=== PATIENT | male | born 1945 ===

== ENCOUNTER 2022-08-11 12:21 | Outpatient (REF) | payer MEDICARE, SELFPAY ==
--- NOTE | ~2022-08-11 | XR_ITS ---
EXAMINATION: XR CHEST CLINICAL INFORMATION: Acute bronchitis COMPARISON: None TECHNIQUE: 2 views of the chest were obtained. FINDINGS: Hyperexpanded lungs. Oligemia of the upper lungs suggestive of emphysema. No consolidation. No pleural effusion or pneumothorax. The cardiomediastinal silhouette is within normal limits. XR/XR chest 2V IMPRESSION: No consolidation. Findings suggestive of emphysema.
== END 2022-08-11 12:22 | disposition home or self-care (01) ==
LOC: HO.HMGCX 12:21
PROVIDERS: Visit Provider Internal Medicine
DX: J20.9 Acute bronchitis, unspecified (principal)
CPT/HCPCS: 71046

== ENCOUNTER 2022-12-24 08:45 | Outpatient (REF) | payer MEDICARE, SELFPAY ==
[2022-12-24 11:28] LABS: MANUAL DIFF FLAG NO
[2022-12-24 11:31] LABS: Basophils Percent Auto 0.7 % (0-2); Eosinophils Absolute Auto 0.1 X10*3/uL (0.0-0.4); Eosinophils Percent Auto 1.2 % (0-4); Hematocrit 44.5 % (42.0-52.0); Hemoglobin 14.7 g/dl (14.0-18.0); Lymphocytes Absolute Auto 1.5 X10*3/uL (1.2-4.9); Lymphocytes Percent Auto 35.6 % (20-40); Mean Corpuscular Hemoglobin 30.3 pg (27.0-33.0); Mean Corpuscular Volume 91.8 fL (80.0-98.0); Mean Platelet Volume 9.7 fL (9.4-12.4); Monocytes Absolute Auto 0.5 X10*3/uL (0.1-1.2); Monocytes Percent Auto 11.9 % (2-11); Neutrophils Absolute Auto 2.1 x10*3/uL (2.0-8.3); Neutrophils Percent Auto 50.6 % (45-73); Platelet Count 223 X10*3/uL (160-400); Red Blood Count 4.85 X10*6/uL (4.60-5.80); Red Cell Distribution Width 12.5 % (11.0-16.0); White Blood Count 4.1 X10*3/uL (4.8-10.8)
[2022-12-24 12:19] LABS: Alanine Aminotransferase 22 U/L (0-40); Albumin Level 3.9 g/dL (3.5-5.0); Alkaline Phosphatase 104 U/L (39-117); Anion Gap 12 (12-20); Aspartate Amino Transferase 23 U/L (5-37); Bilirubin Total 1.1 mg/dL (0.0-1.0); Blood Urea Nitrogen 13 mg/dL (9-16); Calcium 8.9 mg/dL (8.4-10.2); Carbon Dioxide 30 mmol/L (22-29); Chloride 107 mmol/L (96-108); Cholesterol 183 mg/dL; Estimated Glomerular Filt Rate > 60; Glucose Fasting 100 mg/dL (60-99); HDL Cholesterol 54 mg/dL; LDL Cholesterol Calculated 105 mg/dl; Sodium 144 mmol/L (135-145); Total Protein 6.5 g/dL (6.5-8.0); Triglycerides 124 mg/dL
[2022-12-24 12:37] LABS: PSA,Total (Free>4and<10) 1.22 ng/mL (0.00-4.00)
[2022-12-28 10:48] LABS: Theophylline 2.5
== END 2022-12-24 08:46 | disposition home or self-care (01) ==
LOC: HO.HMGCLDS 08:45
PROVIDERS: PCP Internal Medicine; Visit Provider Internal Medicine
DX: J44.9 Chronic obstructive pulmonary disease, unspecified (principal); Z87.891 Personal history of nicotine dependence; Z12.5 Encounter for screening for malignant neoplasm of prostate
CPT/HCPCS: 36415; 80053; 80061; 80198; 84153; 85025

== ENCOUNTER 2023-01-21 10:46 | Outpatient (REF) | payer MEDICARE, SELFPAY ==
--- NOTE | ~2023-01-21 | CT_ITS ---
EXAMINATION: CT ANGIOGRAM OF THE CHEST WITH AND WITHOUT CONTRAST (CT PULMONARY ANGIOGRAM FOR PE) CLINICAL INFORMATION: Reason for Exam R06.02 - Shortness of breath COMPARISON: December 2021. TECHNIQUE: Prior to contrast administration, noncontrast localization images were obtained. Subsequently, multidetector volumetric imaging was performed from the thoracic inlet to below the diaphragms following the administration of 65 mL Omnipaque 350 intravenous contrast. No contrast reaction reported Sagittal, coronal, and MIP oblique sagittal reformatted images were obtained on the CT workstation, uploaded to PACS, and reviewed. This CT examination was performed using dose optimization techniques as appropriate, variously including the following: *Automated exposure control *Adjustment of mA and/or kV according to patient size (this includes techniques or standardized protocols for targeted exams where dose is matched to indication/reason for exam; i.e. extremities or head) *Use of iterative reconstruction technique Total exam dose-length product 123 mGy-cm FINDINGS: QUALITY OF STUDY/CONTRAST BOLUS: Satisfactory. PULMONARY ARTERIES: No pulmonary emboli. THORACIC AORTA: No aneurysm. LUNG: Main airways unremarkable. Extensive emphysematous changes with bullous disease at the apices again observed. A perifissural nodule/granuloma previously seen on the right series 7 image 320 does not appear to be significantly changed. Left perifissural nodule image 374 also does not appear to be significantly changed. Peribronchial thickening appears increased at the lower lobe level. Mild increased atelectasis observed in the posterior lower lobes. Pleural plaque lateral right middle lobe series 7 image 499 at 6 to 6.5 mm appears stable. PLEURA: No pleural effusion or pneumothorax. MEDIASTINUM: Small mediastinal nodes again observed. Right hilar node series 5 image 33 at 12 mm short axis does not appear significantly changed. No evidence of septal bowing or right heart strain. CORONARY ARTERY CALCIFICATION: Present. CHEST WALL/AXILLA: No new suspicious adenopathy. OSSEOUS STRUCTURES: Mild thoracic spondylitic changes. No acute compression fractures. UPPER ABDOMEN: Reflux of contrast material into the hepatic veins likely related to tricuspid regurgitation. CT/CT angio chest PE protocol IMPRESSION: No CTA evidence for pulmonary embolus. Extensive emphysematous changes again observed. Nodules not appreciably changed. Peribronchial thickening appears increased in the lower lobes, with mild increased atelectasis of the posterior lower lobes. Right hilar node not appreciably changed. Other incidental findings as noted above.
[2023-01-21] MEDS: iohexoL 350 MG/ML 100 ML INFUS..BTL 85 ML IV (12:13)
--- NOTE | 2023-01-21 12:18 | CA_ITS ---
Transthoracic Echocardiogram Patient (Last, First, Middle): Renato Anthony, Gender: Male Date of : 1945 Age: 77 Procedure Date: 01/21/2023 Procedure Type: Transthoracic Echocardiogram Location: OP Height: 170.18 cm Weight: 70.76 kg BSA: 1.82 m2 Heart Rate: 53 bpm BP: 138 / 60 mmHg Coater: SB Referring MD: Araceli Padilla MD Symptoms: I25.10 - Atherosclerotic heart disease of [place] coronary artery without... Study Quality: Technically Difficult ECG Rhythm: Bradycardia Conclusions: - The left ventricular systolic function is low normal. The calculated ejection fraction is 53% by biplane method. - The basal inferior and basal inferolateral segments are akinetic. - No obvious valvular pathology seen on this study. Findings Procedure Information The quality of the study was technically difficult. The study quality is limited by lung artifact. Left Ventricle Normal left ventricular cavity size. There is normal left ventricular wall thickness. The left ventricular systolic function is low normal. The calculated ejection fraction is 53% by biplane method. There is evidence of regional wall motion abnormalities. Diastolic function is normal for age. LV peak GLS -11.3%. Wall Motion Rest Echo Findings The basal inferior and basal inferolateral segments are akinetic. Atria Both atria are normal in size. Aortic Valve The aortic valve was not well visualized. There is no aortic valve stenosis. There is no aortic valve regurgitation. Mitral Valve The mitral valve appears normal. There is no mitral valve regurgitation. There is no mitral valve stenosis. Pulmonic Valve The pulmonic valve is likely normal. Tricuspid Valve Normal tricuspid valve structure. There is trace tricuspid valve regurgitation. There is no evidence of pulmonary hypertension. Great Vessels The aorta was not well visualized. The aortic annulus is normal in size. Venous The inferior vena cava is normal in size and collapses less than 50% with inspiration. Pericardium/Pleural There is no evidence of pericardial effusion. Prior Study Comparison No prior study available for comparison. Recommendations, Care & Conclusions No obvious valvular pathology seen on this study. Measurements 2D Linear Measurements IVSd: 0.81 0.6-0.9/0.6-1.0 cm LVIDd: 5.30 3.9-5.3/4.2-5.9 cm LVIDd Index: 2.91 2.4-3.2/2.2-3.1 cm/m2 LVIDs: 4.59 2.0-3.6 cm LVPWd: 0.65 0.7-1.1 cm LA Diam: 4.30 2.7-3.8/3.0-4.0 cm LAIDs Index: 2.36 1.5-2.3 cm/m2 LV Mass: 166.73 67-162/88-224 g LV Mass Index: 91.61 43-95/49-115 g/m2 LVOT Diam: 2.20 3.0+(-)1.3 cm 2D Systolic Function EF 4C: 47.90 >55% EF 2C: 56.20 >55% EF BiP: 52.50 >55% Mitral Valve MV Pk E: 0.49 MV PK A: 0.48 MV Decel Time: 280.00 E/A: 1.00 E'Lateral: 9.57 E'Medial: 4.46 E/E' Med: 11.10 E/E' Lat: 5.20 PHT: 82.00 MVA PHT: 2.68 Decel [place]: 1.76 Aortic Valve AoV Pk Felix: 1.16 AoV Mn Felix: 0.76 AoV VTI: 0.26 AoV Pk Grad: 5.00 Aov Mn Grad: 3.00 DOMINGA Cont.VTI: 2.58 LVOT LVOT Pk Felix: 0.81 LVOT Mn Felix: 0.56 LVOT VTI: 0.18 LVOT Pk Grad: 3.00 LVOT Mn Grad: 2.00 LVOT Diam: 2.20 LVOT Area: 3.80 Diastolic Function MV Pk E: 0.49 MV Pk A: 0.48 E/A: 1.00 E'Medial: 4.46 E/E' Med: 11.10 E' Laterial: 9.57 E/E' Lat: 5.20 Right Ventricle TAPSE (mm): 22.60 TVS' Felix: 9.46 Tricuspid Valve TR Pk Felix: 2.13 TR Pk Grad: 18.00 RA Press: 8.00 RVSP: 26.00 Great Vessels Aorta Sinus of Valsalva: 3.00 2.0-3.5 cm Pulmonary Veins Pulm Vein S/D 1.00 Pulmonary Valve PV Pk Felix: 0.86 Peak PV Grad: 3.00 Updated in Other Vendor System with Status of Final Jose Rob MD electronically signed on 01/22/2023 11:10:22 AM with status of Final
== END 2023-01-21 10:47 | disposition home or self-care (01) ==
LOC: HO.CT 10:46
PROVIDERS: Visit Provider Internal Medicine
DX: I25.10 Atherosclerotic heart disease of native coronary artery without angina pectoris (principal); J44.9 Chronic obstructive pulmonary disease, unspecified; R06.02 Shortness of breath; R09.02 Hypoxemia
CPT/HCPCS: 71275; 93306; 93356; Q9967

== ENCOUNTER 2023-02-17 15:06 | Outpatient (REF) | payer MEDICARE, SELFPAY ==
[2023-02-18 12:52] LABS: Theophylline < 0.8 MG/L ((10-20))
== END 2023-02-17 15:07 | disposition home or self-care (01) ==
LOC: HO.HMGCLDS 15:06
PROVIDERS: PCP Internal Medicine; Visit Provider Internal Medicine
DX: J44.9 Chronic obstructive pulmonary disease, unspecified (principal); Z79.899 Other long term (current) drug therapy
CPT/HCPCS: 36415; 80198

== ENCOUNTER 2023-06-23 14:04 | Outpatient (AMB) | payer MEDICARE, SELFPAY ==
--- NOTE | 2023-06-23 14:27 | MHC.OFFVIS ---
Intake Vital Signs 06/23/23 14:28 Height 5 ft 6 in Weight 156 lb BMI 25.2 BP 130/60 Blood Pressure Location Lt brachial Position Sitting Pulse 73 Pulse Oximetry (%) 89 L Oxygen Delivery Method Room Air Intake Visit Reasons: COPD Intake Note: pt is here as a new patient, he is short of breath with walking, in am O2 is around 90. He does have a cough, nothing helps him. Allergies roflumilast [From Daliresp] Adverse Reaction (Intermediate, Verified 06/23/23 15:06) Shortness of Breath fluticasone furoate [From Trelegy Ellipta] Adverse Reaction (Verified 06/23/23 15:06) Difficulty Breathing vilanterol [From Trelegy Ellipta] Adverse Reaction (Verified 06/23/23 15:06) Difficulty Breathing zetia Adverse Reaction (Uncoded 06/23/23 15:06) Blurred vision Medication List - Last Reconciled 06/23/23 by Lisy Love MD albuterol sulfate 90 mcg/actuation 2 puffs inhalation QID PRN albuterol sulfate 0.63 mg (3 mL) inhalation Q4-6H PRN atorvastatin 80 mg PO DAILY metoprolol tartrate 50 mg PO BID nebulizers 1 q6 prn theophylline ER 300 mg PO DAILY umeclidinium-vilanterol 62.5-25 mcg/actuation (Anoro Ellipta) 1 inh inhalation DAILY Do you need a note to return to daycare/school/sports/work: No HPI COPD HPI Details This 77 years old sport relates speaking gentleman, very pleasant, is being seen for the 1st time for pulmonary evaluation and management. His who is also [place], does speak some Samoan. For the past many years this gentleman was under the care of his primary care physician who was of [place] background, and now retired. His current primary care physician is Araceli Martinez MD . For the past many years he and his have been getting the air medications from [facility], at a much cheaper [facility]. The medications prescribed [place] in [place], were costly and they cannot afford. He does have history of smoking for about 20 pack years but quit 20 years ago. 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 He started having increasing amount of shortness of breath, with intermittent cough. He tells me that he had pulmonary function test many years ago at [facility]. His the [place] speaking primary care physician has been prescribing the meds and he is still continues to use the same, coming from [facility] From the stickers we have gotten the following information about his meds. Thyrospirex (Theophylline 300 mg ) daily. Anoro Ellipta 55/ 1 inhalation daily Formoterol 12 Mcg cap daily Albuterol solution, 0.63 for the nebulizer to use Q 4-6 hours p.r.n.. fenoteroli Hydrobromide - ipratropli bromide (50-21) Seems like Combuivent , this he has been using 3 to 4 times a day. His current problem is that he has frequent cough, He gets short of breath on walking fast or climbing stairs. Luckily he has had no recurrent infections. [facility] Medical History (Updated 06/23/23 @ 16:00 by Lisy Love MD) Heart attack Pulmonary nodules Surgical History H/O angioplasty H/O right knee surgery Family History Father Lung cancer Mother Hypertension Social History Housing: House Patient Tobacco Use Status: Former Tobacco user Quit Date: 1997 e-Cigarette/Vaping Use: Never Used Current occupational status: retired Cognitive needs: No Hearing needs: No Vision needs: Yes Review of Systems Const All systems reviewed & are unremarkable except as noted in HPI and below and Other Reports body aches (Difficult to get details because of language problem, but he denies any oth) Physical Exam Vital Signs: Last Vital Signs Pulse 73 06/23/23 14:28 BP 130/60 06/23/23 14:28 Pulse Ox 89 L 06/23/23 14:28 Oxygen Delivery Method Room Air 06/23/23 14:28 BMI result Body Mass Index 25.2 Const General: comfortable, no acute distress, alert and awake Orientation/consciousness: patient oriented x3 HEENT Head: Yes normal to inspection General nose exam: No nasal polyps present and No nasal discharge present Face and sinus: Yes sinuses nontender Mouth: oropharynx normal Throat: Yes posterior oropharynx normal Eyes General: appearance normal, both eyes and all related structures Neck Neck: Yes normal visual inspection, Yes no lymphadenopathy, Yes trachea midline and Yes no JVD Thyroid: Thyroid normal Chest Chest palpation & inspection: normal inspection of the chest, normal palpation of entire chest wall and no tenderness Resp Other: Percussion note hyper-resonant, Breath sounds are diminished with prolonged expiratory phase. No wheezes or crepitations are heard. Cardio Palpation: normal PMI Rate: regular rate Rhythm: regular rhythm Heart sounds: no gallops and no murmurs GI Palpation (GI): Soft to palpation, nontender, No hepatosplenomegaly present and no masses Auscultation: normal bowel sounds Back/Spine/Pelvis Thoracic/Lumbar Spine: thoracic and lumbar spine normal to inspection Skin General skin exam: no rashes or lesions noted Neuro General: patient oriented x3 and no focal motor deficits Cranial nerves: Yes CN's II-XII intact bilaterally Extrem General: Yes normal to inspection, Yes no clubbing, cyanosis or edema and Yes no calf tenderness Psych Appearance: grossly normal and well kempt Speech and movement: Normal speech and movement present Results Reviewed Results Reviewed: CTA OF THE CHEST on 01/21/2023, Results are reviewed. No evidence dose of pulmonary embolism . But pulmonary emphysema was noted, peribronchial thickening was noted. Pre fissural nodule in right and left lung noted, small. Assessment & Plan Assessment & Plan (1) Ex-smoker: Comment: History of smoking, 20 pack years. Quit in 1997. Code(s): Z87.891 - Personal history of nicotine dependence (2) COPD (chronic obstructive pulmonary disease): Comment: Patient seems to have significant degree of chronic obstructive pulmonary disease. Would like to get pulmonary function test for which he is being scheduled. [place] : Difficult to correlate his meds from [email or web address] with treatment regimens available here is not [place]. Patient's say is that is the local medications available here are just not affordable. The prefer to keep on getting meds from [email or web address]. Under this circumstance the, [place] out them to keep on using the regimen as noted above in the history. I advised him to cut down the use of nebulizer to no more than twice a day. After the PFT will see if we can make any significant change. Code(s): J44.9 - Chronic obstructive pulmonary disease, unspecified (3) SOB (shortness of breath): Comment: His complaint of shortness of breath on exertion is consistent with chronic obstructive pulmonary disease, which seems to be moderately severe. Code(s): R06.02 - Shortness of breath (4) Pulmonary nodules: Comment: Two perifissural small pulmonary nodules noted on CTA OF THE CHEST IN DECEMBER OF THIS YEAR. SEEM TO BE SMALL AND NONSPECIFIC. I THINK IT WILL BE A GOOD IDEA TO REPEAT CT SCAN OF THE CHEST AT LEAST 1 MORE TIME AT A YEARS INTERVAL, THAT WILL BE SOMETIME AROUND IN spring. Code(s): R91.8 - Other nonspecific abnormal finding of lung field Orders: Orders PFT pulmonary function test Today J44.9 - Chronic obstructive pulmonary disease, unspecified, R06.02 - Shortness of breath, Z87.891 - Personal history of nicotine dependence Coding Level of Care Code New Pt Level 4 (83569) Diagnoses Ex-smoker Z87.891 COPD (chronic obstructive pulmonary disease) J44.9 SOB (shortness of breath) R06.02 Pulmonary nodules R91.8
[2023-06-23 14:28] VITALS: BP 130/60; PULSE 73; O2SAT 89; BMI 25.2
== END 2023-06-23 15:11 | disposition home or self-care (01) ==
PROVIDERS: PCP Internal Medicine; Visit Provider Internal Medicine
DX: Z87.891 Personal history of nicotine dependence (principal); J44.9 Chronic obstructive pulmonary disease, unspecified; R06.02 Shortness of breath; R91.8 Other nonspecific abnormal finding of lung field
CPT/HCPCS: 99204

== ENCOUNTER → 2023-06-23 14:04 | Outpatient (BNVA) | payer MEDICARE, SELFPAY | PROVIDERS: PCP Internal Medicine; Visit Provider Internal Medicine | DX: J44.9 Chronic obstructive pulmonary disease, unspecified (principal); R06.02 Shortness of breath; R91.8 Other nonspecific abnormal finding of lung field; Z87.891 Personal history of nicotine dependence | CPT/HCPCS: 99202 ==

== ENCOUNTER 2023-07-19 13:03 | Outpatient (REF) | payer MEDICARE, SELFPAY ==
--- NOTE | 2023-07-19 13:57 | PFT_ITS ---
Forced vital capacity 62%, FEV1 32%, FEV1/FVC ratio is 37. [id number] 18% and MVV 23%. Post bronchodilator therapy, there is no change. Total lung capacity 111%. Residual volume 210%. Diffusion capacity 37% CONCLUSION: The findings are consistent with very severe obstructive airway disorder. There is evidence of air trapping. Post bronchodilator therapy, there is no change. Clinical correlation recommended. MD JUDITH Mejia/[facility] / [phone]
== END 2023-07-19 13:04 | disposition home or self-care (01) ==
LOC: HO.RESP 13:03
PROVIDERS: PCP Internal Medicine; Visit Provider Internal Medicine
DX: J44.9 Chronic obstructive pulmonary disease, unspecified (principal); R06.02 Shortness of breath; Z87.891 Personal history of nicotine dependence
CPT/HCPCS: 94010; 94727; 94729

== ENCOUNTER → 2023-07-19 13:57 | Outpatient (BNV) | payer MEDICARE, SELFPAY | PROVIDERS: PCP Internal Medicine; Visit Provider Internal Medicine | DX: R06.09 Other forms of dyspnea (principal) | CPT/HCPCS: 94060; 94727; 94729 ==

== ENCOUNTER 2023-07-28 09:08 | Outpatient (AMB) | payer MEDICARE, SELFPAY ==
[2023-07-28 09:20] VITALS: BP 98/42; PULSE 59; O2SAT 94; BMI 24.7
--- NOTE | 2023-07-28 09:20 | MHC.OFFVIS ---
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 Required: No Allergies roflumilast [From Daliresp] Adverse Reaction (Intermediate, Verified 07/28/23 09:34) Shortness of Breath fluticasone furoate [From Trelegy Ellipta] Adverse Reaction (Verified 07/28/23 09:34) Difficulty Breathing vilanterol [From Trelegy Ellipta] Adverse Reaction (Verified 07/28/23 09:34) Difficulty Breathing zetia Adverse Reaction (Uncoded 07/28/23 09:34) Blurred vision Medication List - Last Reconciled 07/28/23 by Lisy Love MD albuterol sulfate 90 mcg/actuation 2 puffs inhalation QID PRN albuterol sulfate 0.63 mg (3 mL) inhalation Q4-6H PRN atorvastatin 80 mg PO DAILY metoprolol tartrate 50 mg PO BID nebulizers 1 q6 prn theophylline ER 300 mg PO DAILY umeclidinium-vilanterol 62.5-25 mcg/actuation (Anoro Ellipta) 1 inh inhalation DAILY Do you need a note to return to daycare/school/sports/work: No HPI 6 minute walk/PFT Follow Up HPI Details 77 years old gentleman mostly Cymro speaking, comes for follow-up for his COPD and he has had pulmonary function test. His COPD is basically holding stable. But he gets short of breath on minimal exertion. According to his he is short of breath during walking around and doing his household work. However he keeps himself active, and busy in doing household work. The is concerned about his oxygen level. He has had no recent respiratory infection. He is a former smoker and quit in 1997. [facility] Medical History Pulmonary nodules Heart attack Surgical History H/O right knee surgery H/O angioplasty Family History Father Lung cancer Mother Hypertension Social History Housing: House Patient Tobacco Use Status: Former Tobacco user Quit Date: 1997 e-Cigarette/Vaping Use: Never Used Current occupational status: retired Cognitive needs: No Hearing needs: No Vision needs: Yes Review of Systems Const All systems reviewed & are unremarkable except as noted in HPI and below and Other Reports body aches (Difficult to get details because of language problem, but he denies any oth) Physical Exam Vital Signs: Last Vital Signs Pulse 59 07/28/23 09:20 BP 98/42 L 07/28/23 09:20 Pulse Ox 94 07/28/23 09:20 Oxygen Delivery Method Room Air 07/28/23 09:20 BMI result Body Mass Index 24.7 Const General: comfortable, no acute distress, alert and awake Orientation/consciousness: patient oriented x3 HEENT Head: Yes normal to inspection General nose exam: No nasal polyps present and No nasal discharge present Face and sinus: Yes sinuses nontender Mouth: oropharynx normal Throat: Yes posterior oropharynx normal Eyes General: appearance normal, both eyes and all related structures Neck Neck: Yes normal visual inspection, Yes no lymphadenopathy, Yes trachea midline and Yes no JVD Thyroid: Thyroid normal Chest Chest palpation & inspection: normal inspection of the chest, normal palpation of entire chest wall and no tenderness Resp Other: Percussion note hyper-resonant, Breath sounds are diminished with prolonged expiratory phase. No wheezes or crepitations are heard. Cardio Palpation: normal PMI Rate: regular rate Rhythm: regular rhythm Heart sounds: no gallops and no murmurs GI Palpation (GI): Soft to palpation, nontender, No hepatosplenomegaly present and no masses Auscultation: normal bowel sounds Back/Spine/Pelvis Thoracic/Lumbar Spine: thoracic and lumbar spine normal to inspection Skin General skin exam: no rashes or lesions noted Neuro General: patient oriented x3 and no focal motor deficits Cranial nerves: Yes CN's II-XII intact bilaterally Extrem General: Yes normal to inspection, Yes no clubbing, cyanosis or edema and Yes no calf tenderness Psych Appearance: grossly normal and well kempt Speech and movement: Normal speech and movement present Office Procedures 6 Minute Walk Time:: :35 SPO2 % at rest: 95 Pulse at rest: 56 SPO2 % during excercise: 84 Pulse during excercise: 88 SPO2 % after excercise: 96 Pulse after excercise: 62 Distance in yards walked: 1,200 Trish Score: 8 Performance Observations:: Patient was able to walk on level ground unassisted at a normal pace. After 4 minutes O2 saturation dropped to 84%. O2 applied at 1L with little effect..increased to 2L. After 2 minutes of rest with O2 on at 2L O2 saturation recovered to 95% and patient was able to complete the walk. Patient and his report patient becomes very short of breath with any walking . Patient will benefit from supplemental O2. [id number] - 6 Minute Walk Results Reviewed Results Reviewed: Pulmonary function test shows severe obstructive airway disorder with evidence of air trapping, RV 210%. In marked decrease in DLCO,37 % 6 minutes walk test today : O2 sat at rest 95% After 5 minutes of walk dropped to 84%. Needed O2 2 L/minute to maintain O2 sat at 96% Assessment & Plan Assessment & Plan (1) Ex-smoker: Comment: History of smoking, 20 pack years. Quit in 1997. Code(s): Z87.891 - Personal history of nicotine dependence (2) COPD (chronic obstructive pulmonary disease): Comment: As per PFT .Patient has severe chronic obstructive pulmonary disorder, no response to bronchodilator therapy. TX : EXPLAINED ABOUT THE RESULTS OF PULMONARY FUNCTION TEST. THEOPHYLLINE ER 300 MG P.O. DAILY IN THE EVENING ANORO ELLIPTA 1 INHALATION DAILY ALBUTEROL SOLUTION IN THE NEBULIZER Q 4-6 HOURS P.R.N. FOR ACUTE DISTRESS. ALSO ALBUTEROL HFA 2 PUFFS Q 4-6 HOURS P.R.N. WHEN OUTDOORS Code(s): J44.9 - Chronic obstructive pulmonary disease, unspecified (3) CAD (coronary artery disease): Comment: hx of [place], s/p bare metal stent to OM 1998 , ECHO 01/13 EF 53%, basal inferior , basal inferolateral akinetic BLOOD PRESSURE IS LITTLE ON THE LOW SIDE TODAY. 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 Code(s): I25.10 - Atherosclerotic heart disease of [place] coronary artery without angina pectoris (4) Pulmonary nodules: Comment: Two perifissural small pulmonary nodules noted on CTA OF THE CHEST IN DECEMBER OF THIS YEAR. SEEM TO BE SMALL AND NONSPECIFIC. I THINK IT WILL BE A GOOD IDEA TO REPEAT CT SCAN OF THE CHEST AT LEAST 1 MORE TIME AT A YEARS INTERVAL, THAT WILL BE SOMETIME AROUND IN spring. Code(s): R91.8 - Other nonspecific abnormal finding of lung field (5) Hypoxia: Comment: BECAUSE HE CONTINUES TO HAVE SHORTNESS OF BREATH ON MINIMAL EXERTION. 6 MINUTES WALK TEST WAS DONE. IT DOES CONFIRM EXERCISE INDUCED HYPOXEMIA. ORDER FOR OXYGEN IS BEING SENT TO DME SUPPLIER. O2 2 L/MINUTE WITH A PORTABLE CYLINDER, WHENEVER HE HAS TO DO ANY PHYSICAL ACTIVITY. MAY ALSO USE 2 L/MINUTE P.R.N. IF HE HAS INCREASED SHORTNESS OF BREATH OR RESPIRATORY DISTRESS. Code(s): R09.02 - Hypoxemia Orders: Orders AMB 6 minute walk Today J44.9 - Chronic obstructive pulmonary disease, unspecified, R06.02 - Shortness of breath Coding Level of Care Code Est Pt Level 3 (68753) Diagnoses Ex-smoker Z87.891 COPD (chronic obstructive pulmonary disease) J44.9 CAD (coronary artery disease) I25.10 Pulmonary nodules R91.8 Hypoxia R09.02 CPT Codes Coding ([id number])
[2023-07-28 10:02] VITALS: PULSE 56; O2SAT 95
== END 2023-07-28 09:50 | disposition home or self-care (01) ==
PROVIDERS: PCP Internal Medicine; Visit Provider Internal Medicine
DX: Z87.891 Personal history of nicotine dependence (principal); J44.9 Chronic obstructive pulmonary disease, unspecified; I25.10 Atherosclerotic heart disease of native coronary artery without angina pectoris; R91.8 Other nonspecific abnormal finding of lung field; R09.02 Hypoxemia
CPT/HCPCS: 94618; 99213

== ENCOUNTER → 2023-07-28 09:08 | Outpatient (BNVA) | payer MEDICARE, SELFPAY | PROVIDERS: PCP Internal Medicine; Visit Provider Internal Medicine | DX: J44.9 Chronic obstructive pulmonary disease, unspecified (principal); R91.8 Other nonspecific abnormal finding of lung field; R09.02 Hypoxemia; I25.10 Atherosclerotic heart disease of native coronary artery without angina pectoris; I25.2 Old myocardial infarction; Z87.891 Personal history of nicotine dependence | CPT/HCPCS: 94618; 99212 ==

== ENCOUNTER 2023-08-22 14:53 | Outpatient (AMB) | payer MEDICARE, SELFPAY ==
--- NOTE | 2023-08-22 15:04 | MHC.OFFVIS ---
Intake Vital Signs 08/22/23 15:05 Height 5 ft 6 in Weight 157 lb BMI 25.3 BP 120/60 Blood Pressure Location Lt brachial Position Sitting Pulse 96 Pulse Source Pulse Oximeter Pulse Oximetry (%) 96 Oxygen Delivery Method Nasal Cannula Oxygen Flow Rate 2 Intake Visit Reasons: COPD Intake Note: pt is here for follow up and using oxygen and feeling better. and using oxygen at night on 2 liters. Betting Clerks Required: No Allergies roflumilast [From Daliresp] Adverse Reaction (Intermediate, Verified 08/22/23 15:28) Shortness of Breath fluticasone furoate [From Trelegy Ellipta] Adverse Reaction (Verified 08/22/23 15:28) Difficulty Breathing vilanterol [From Trelegy Ellipta] Adverse Reaction (Verified 08/22/23 15:28) Difficulty Breathing zetia Adverse Reaction (Uncoded 08/22/23 15:28) Blurred vision Medication List - Last Reconciled 08/22/23 by Lisy Love MD albuterol sulfate 90 mcg/actuation 2 puffs inhalation QID PRN albuterol sulfate 0.63 mg (3 mL) inhalation Q4-6H PRN atorvastatin 80 mg PO DAILY metoprolol tartrate 50 mg PO BID nebulizers 1 q6 prn theophylline ER 300 mg PO DAILY umeclidinium-vilanterol 62.5-25 mcg/actuation (Anoro Ellipta) 1 inh inhalation DAILY Do you need a note to return to daycare/school/sports/work: No HPI COPD HPI Details This 77 years old gentleman is here for a short-term follow-up after starting on oxygen. He is very happy and feels much better, stronger since. he is using oxygen. He uses O2 2 L/minute at night, and p.r.n. during the daytime especially if he has to go outdoors. He has stationary concentrator as well as cylinders for portability. Talking about getting a like weight portable unit such as [facility] Medical History Pulmonary nodules Heart attack Surgical History H/O right knee surgery H/O angioplasty Family History Father Lung cancer Mother Hypertension Social History Housing: House Patient Tobacco Use Status: Former Tobacco user Quit Date: 1997 e-Cigarette/Vaping Use: Never Used Current occupational status: retired Cognitive needs: No Hearing needs: No Vision needs: Yes Review of Systems Const All systems reviewed & are unremarkable except as noted in HPI and below Eyes Reports no additional complaints ENT Reports no additional complaints Card Denies chest pain, Denies irregular heart rhythm and Denies leg edema Resp Reports as per HPI GI Reports no additional complaints Reports no additional complaints Musc Reports myalgias ( mild off and on) Skin/Breast Reports system reviewed and no additional complaints, except as documented Neuro Reports no additional complaints Psych Reports no additional complaints Endo Reports no additional complaints Carlos/Lymph Reports no additional complaints Physical Exam Vital Signs: Last Vital Signs Pulse 96 08/22/23 15:05 BP 120/60 08/22/23 15:05 Pulse Ox 96 08/22/23 15:05 Oxygen Delivery Method Nasal Cannula 08/22/23 15:05 Oxygen Flow Rate 2 08/22/23 15:05 BMI result Body Mass Index 25.3 Const General: comfortable, no acute distress, alert and awake Orientation/consciousness: patient oriented x3 HEENT Head: Yes normal to inspection General nose exam: No nasal polyps present and No nasal discharge present Face and sinus: Yes sinuses nontender Mouth: oropharynx normal Throat: Yes posterior oropharynx normal Eyes General: appearance normal, both eyes and all related structures Neck Neck: Yes normal visual inspection, Yes no lymphadenopathy, Yes trachea midline and Yes no JVD Thyroid: Thyroid normal Chest Chest palpation & inspection: normal inspection of the chest, normal palpation of entire chest wall and no tenderness Resp Other: Percussion note hyper-resonant, Breath sounds are diminished with prolonged expiratory phase. No wheezes or crepitations are heard. Cardio Palpation: normal PMI Rate: regular rate Rhythm: regular rhythm Heart sounds: no gallops and no murmurs GI Palpation (GI): Soft to palpation, nontender, No hepatosplenomegaly present and no masses Auscultation: normal bowel sounds Back/Spine/Pelvis Thoracic/Lumbar Spine: thoracic and lumbar spine normal to inspection Skin General skin exam: no rashes or lesions noted Neuro General: patient oriented x3 and no focal motor deficits Cranial nerves: Yes CN's II-XII intact bilaterally Extrem General: Yes normal to inspection, Yes no clubbing, cyanosis or edema and Yes no calf tenderness Psych Appearance: grossly normal and well kempt Speech and movement: Normal speech and movement present Assessment & Plan Assessment & Plan (1) COPD (chronic obstructive pulmonary disease): Comment: As per PFT .Patient has severe chronic obstructive pulmonary disorder, no response to bronchodilator therapy. TX : THEOPHYLLINE ER 300 MG P.O. DAILY IN THE EVENING ANORO ELLIPTA 1 INHALATION DAILY ALBUTEROL SOLUTION IN THE NEBULIZER Q 4-6 HOURS P.R.N. FOR ACUTE DISTRESS. ALSO ALBUTEROL HFA 2 PUFFS Q 4-6 HOURS P.R.N. WHEN OUTDOORS Code(s): J44.9 - Chronic obstructive pulmonary disease, unspecified (2) Hypoxia: Comment: HAD 6 MINUTES WALK TEST ON HIS LAST VISIT WHICH QUALIFIED HIM FOR OXYGEN. HE IS USING O2 2 L/MINUTE AT NIGHT, AND P.R.N. DURING THE DAYTIME FOR PORTABILITY HE HAS LARGE ,CYLINDERS HE WILL LIKE TO GET A E LIGHTWEIGHT UNIT. ON HIS NEXT VISIT HE WILL BE TESTED FOR O2 CONSERVING UNIT. Code(s): R09.02 - Hypoxemia (3) Pulmonary nodules: Comment: Two perifissural small pulmonary nodules noted on CTA OF THE CHEST IN DECEMBER OF THIS YEAR. SEEM TO BE SMALL AND NONSPECIFIC. I THINK IT WILL BE A GOOD IDEA TO REPEAT CT SCAN OF THE CHEST AT LEAST 1 MORE TIME AT A YEARS INTERVAL, THAT WILL BE SOMETIME AROUND IN spring. Code(s): R91.8 - Other nonspecific abnormal finding of lung field Coding Level of Care Code Est Pt Level 3 (09909) Diagnoses COPD (chronic obstructive pulmonary disease) J44.9 Hypoxia R09.02 Pulmonary nodules R91.8
[2023-08-22 15:05] VITALS: BP 120/60; PULSE 96; O2SAT 96; BMI 25.3
== END 2023-08-22 15:38 | disposition home or self-care (01) ==
PROVIDERS: PCP Internal Medicine; Visit Provider Internal Medicine
DX: J44.9 Chronic obstructive pulmonary disease, unspecified (principal); R09.02 Hypoxemia; R91.8 Other nonspecific abnormal finding of lung field
CPT/HCPCS: 99213

== ENCOUNTER → 2023-08-22 14:53 | Outpatient (BNVA) | payer MEDICARE, SELFPAY | PROVIDERS: PCP Internal Medicine; Visit Provider Internal Medicine | DX: J44.9 Chronic obstructive pulmonary disease, unspecified (principal); R91.8 Other nonspecific abnormal finding of lung field; R09.02 Hypoxemia | CPT/HCPCS: 99212 ==

== ENCOUNTER 2023-09-05 22:34 | Inpatient (IN) | payer MEDICARE, SELFPAY ==
--- NOTE | ~2023-09-05 | XR_ITS ---
EXAMINATION: XR CHEST CLINICAL INFORMATION: Shortness of breath COMPARISON: CT angiogram 01/21/2023, chest radiograph 08/11/2022 TECHNIQUE: Frontal view of the chest was obtained. FINDINGS: Again seen are severe emphysematous changes with marked bullous formation in the upper lobes. No infiltrates, effusions or lung masses are seen. XR/XR chest 1V IMPRESSION: Severe emphysematous changes. No acute intrathoracic disease.
--- NOTE | 2023-09-05 22:40 | ECG_ITS ---
Test Reason : dyspnea Blood Pressure : / mmHG Vent. Rate : 097 BPM Atrial Rate : 097 BPM P-R Int : 160 ms QRS Dur : 106 ms QT Int : 348 ms P-R-T Axes : 084 048 064 degrees QTc Int : 441 ms Normal sinus rhythm Incomplete right bundle branch block Nonspecific ST abnormality Abnormal ECG No previous ECGs available Referred By: Generic ED Physician Electronically Signed By:ANGELA MEDELLIN MD
[2023-09-05 22:44] VITALS: BP 146/74; BP 160/78; PULSE 105; PULSE 96; RESP 25; TEMP 36.7; O2SAT 97; O2SAT 99; BMI 24.1
--- NOTE | 2023-09-05 22:45 | ED_ITS ---
HPI - SOB/Dyspnea General Chief Complaint: Dyspnea Stated Complaint: Diff breathing Time Seen by Provider: 09/05/23 22:45 Source: patient and family Mode of arrival: EMS Limitations: language barrier History of Present Illness HPI Narrative: Patient history of COPD on home oxygen 2 liter/minute came for increased shortness of breath started earlier today increased work of breathing on EMS arrived breathing 40-50 times per minute saturating high 80s was placed on 4 L is still saturating 85% placed on high-flow prior to arrival saturating 96% no fever no other family member sick patient coughing mostly dry no chest pain or palpitation no leg swelling patient is a DuoNeb treatment and Solu-Medrol treatment by EMT Related Data Previous Rx's Medication Instructions Recorded albuterol sulfate 90 mcg/actuation 2 puff inhalation QID PRN 12/21/22 aerosol inhaler shortness of breath or wheezing #8.5 grams atorvastatin 80 mg tablet 80 mg PO DAILY #90 tabs 12/21/22 metoprolol tartrate 50 mg tablet 50 mg PO BID #180 tabs 12/21/22 nebulizers #1 ea 12/21/22 theophylline 300 mg 300 mg PO DAILY #90 caps 12/21/22 capsule,extended release 24 hr albuterol sulfate 0.63 mg/3 mL 0.63 mg (3 mL) inhalation Q4-6H 02/17/23 solution for nebulization PRN shortness of breath or wheezing #270 mL umeclidinium 62.5 mcg-vilanterol 1 inh inhalation DAILY #60 ea 04/15/23 25 mcg/actuation powdr for inhalation (Anoro Ellipta) Allergies Allergy/AdvReac Type Severity Reaction Status Date / Time roflumilast [From Daliresp] AdvReac Intermediate Shortness Verified 08/22/23 15:28 of Breath fluticasone furoate AdvReac Difficulty Verified 08/22/23 15:28 [From Trelegy Ellipta] Breathing vilanterol AdvReac Difficulty Verified 08/22/23 15:28 [From Trelegy Ellipta] Breathing zetia AdvReac Blurred Uncoded 08/22/23 15:28 vision Review of Systems 2 Review of Systems: Yes all other systems are reviewed and are negative PMFSH Past Medical History Medical History Pulmonary nodules Heart attack Surgical History H/O right knee surgery H/O angioplasty Family History Family History Father Lung cancer Mother Hypertension Social History Social History Housing: House Alcohol intake: former Patient Tobacco Use Status: Former Tobacco user Quit Date: 1997 Smoked in Last 30 Days: No e-Cigarette/Vaping Use: Never Used Use of substances other than those prescribed or required for medical reasons: No Advance Directives: No Advance Directives Information Provided: No Current occupational status: retired Cognitive needs: No Hearing needs: No Vision needs: Yes Physical Exam 2 Vital Signs: Vital Signs: Last Vital Signs Temp 98.1 F 09/05/23 22:44 Pulse 102 H 09/05/23 23:16 Resp 26 H 09/05/23 23:16 BP 146/74 H 09/05/23 22:44 Pulse Ox 97 09/05/23 22:44 O2 Del Method BiPAP 09/05/23 22:44 BMI result Body Mass Index 24.1 Appearance: Alert. Oriented X3. In moderate respiratory distress Eyes: PERRLA, No Nystagmus ENT: Pharynx normal. Oral Mucosa moist Neck: Normal inspection. Neck supple. CVS: Normal heart rate and rhythm. Pulses normal. Respiratory: Moderate respiratory distress. Equal air entry bilateral, bilateral wheezing Abdomen: Soft and nontender. Bowel sounds are present, Skin: Skin warm and dry. Normal skin color. Normal skin turgor. Extremities: No lower extremity edema. No calf tenderness Neuro: Oriented X 3. No motor deficit. Medications Administered Discontinued Medications Generic Name Dose Route Start Last Admin Trade Name Freq PRN Reason Stop Dose Admin Albuterol Sulfate 5 mg/ 0 mg 09/05/23 23:03 09/05/23 23:16 Albuterol/Ipratropium 3 ml INHALE 09/05/23 23:04 3 each ONCE ONE Administration Medical Decision Making Medical Decision Making MDM Narrative: Patient with severe emphysema on home oxygen came with increased shortness of breath chest x-ray negative for infiltrate D-dimer negative BNP negative patient with chronic bronchitis with increased shortness of breath will admit patient for hypoxia patient was treated with BiPAP treatment for short time with improvement now patient is on 4 L saturating 96% patient received DuoNeb treatment and Solu-Medrol by EMT and in the ER was given 7.5 mg of albuterol treatment will admit for supportive treatment no signs of acute infection at this time Differential Diagnosis Differential Diagnoses: The differential diagnosis associated with the presentation includes Is chronic bronchitis/emphysema/chronic hypoxia/pneumonia/pneumothorax/PE Admission/Observation Consideration of admission/observation: Escalation of care including admission/observation considered Consult Healthcare Provider Management of the patient was discussed with: Hospitalist Lab Data [facility] Lab Attestation statement: I reviewed the patient's lab results. 09/05/23 23:01 09/05/23 23:01 Labs: Lab Results 09/05/23 09/05/23 09/06/23 Range/Units 23:01 23:31 01:11 WBC 8.2 (4.8-10.8) X10*3/uL RBC 4.76 (4.60-5.80) X10*6/uL Hgb 14.9 (14.0-18.0) g/dl Hct 42.8 (42.0-52.0) % MCV 89.9 (80.0-98.0) fL MCH 31.3 (27.0-33.0) pg MCHC 34.8 (31.0-36.0) g/dl RDW 12.3 (11.0-16.0) % Plt Count 202 (160-400) X10*3/uL MPV 9.4 (9.4-12.4) fL Immature Gran % (Auto) 0.4 (0.0-0.4) % Neut % (Auto) 63.9 (45-73) % Lymph % (Auto) 24.9 (20-40) % [place] % (Auto) 10.0 (2-11) % Eos % (Auto) 0.4 (0-4) % Baso % (Auto) 0.4 (0-2) % Lymph # (Auto) 2.1 (1.2-4.9) X10*3/uL [place] # (Auto) 0.8 (0.1-1.2) X10*3/uL Eos # (Auto) 0.0 (0.0-0.4) X10*3/uL Baso # (Auto) 0.0 (0.0-0.2) X10*3/uL Abs Immat Gran (auto) 0.03 (0.00-0.03) X10*3/uL Absolute Neuts (auto) 5.3 (2.0-8.3) x10*3/uL Absolute Nucleated RBC 0.000 (0.0-0.012) X10*3/uL Nucleated RBC % (auto) 0.0 (0.0-0.2) /100WBC D-Dimer High Sensitivty < 150 NG/ML VBG pH 7.41 (7.32-7.43) VBG pCO2 40 mmHg VBG pO2 64 mmHg VBG HCO3 26 (22-26) mmol/L VBG O2 Saturation 92.0 % VBG Base Excess 1.8 mmol/L Sodium 145 (135-145) mmol/L Potassium 4.1 (3.3-5.1) mmol/L Chloride 108 (96-108) mmol/L Carbon Dioxide 21 L (22-29) mmol/L Anion Gap 20 (12-20) BUN 25 H (9-16) mg/dL Creatinine 1.29 (0.5-1.4) mg/dL Estim Creat Clear Calc 47.1 Estimated GFR 54 Random Glucose 118 H (60-115) mg/dL Lactic Acid 1.3 (0.5-2.0) mmol/L Calcium 9.7 D (8.4-10.2) mg/dL Total Bilirubin 0.9 (0.0-1.0) mg/dL AST 31 (5-37) U/L ALT 34 (0-40) U/L Alkaline Phosphatase 94 (39-117) U/L Troponin I High Sens 5.6 (<3.5-35.0) ng/L B-Natriuretic Peptide 35 (<100) pg/mL Total Protein 7.6 (6.5-8.0) g/dL Albumin 4.3 (3.5-5.0) g/dL Influenza Type A (PCR) NEGATIVE (Negative) Influenza Type B (PCR) NEGATIVE (Negative) RSV RNA Qual (PCR) NEGATIVE (Negative) SARS-CoV-2 RNA (RT-PCR) NEGATIVE (Negative) ABG Data Attestation ABG: I personally reviewed and interpreted this ABG as follows: Interpretation: Respiratory hypoxic Independent Interpretation I performed an independent interpretation of an: EKG and Plain X-Ray Interpretation: Normal sinus rhythm heart rate 97 beats per minute normal interval normal axis no acute ST-T change and no acute ischemia Radiology Impression Discussion of test interpretation with radiology: I have reviewed the radiologist's reading. Critical Care Time Critical Care Time Critical Care Time: Yes Total Critical Care Time: 60 Attestation: The patient was critically ill with a high probability of imminent or life threatening deterioration. I spent greater than 70 minutes of discontinuous time evaluating the patient,delivering critical care at the bedside, discussing and evaluating pertinent data with consultants. Critical care time does not include time spent performing separately billable procedures or teaching. Total time spent performing critical care was 60 minutes. Discharge Plan Discharge Clinical Impression: Acute and chronic respiratory failure with hypoxia Patient Disposition: Admitted As Inpatient
[2023-09-05 23:01] VITALS: RESP 28; O2SAT 96
--- OUTSIDE RECORDS SUMMARY | 2023-09-05 23:02 | XMS_ITS | Continuity of Care Document ---
Author Name Unknown Organization [facility] Pulmonary edicine Address [address] [place] [id number]- Care Team Providers Care Log Raft Worker Name Role Phone Araceli Padilla MD Primary Care Physician [facility] [id number] Date(s): 08/04/23 - 09/03/23 [facility] Pulmonary Medicine [address] [place] [address]- Attending Physician: April Henley Admitting Physician: AdmtrApril Referring Physician: Admtr, Ar8 Allergies, Adverse Reactions, Alerts No Known Allergies Medications Albuterol (Eqv-ProAir HFA) 90 mcg/inh inhalation aerosol 2 puffs, Inhalation, Every 6 hours, # 8.5 Gm, 5 Refills, Maintenance, 12/31/21 17:13:00 EST, COPD j44.9 Start Date: 12/31/21 Stop Date: 06/29/22 Status: Ordered Anoro Ellipta 62.5 mcg-25 mcg/inh inhalation powder 1 puffs, Inhalation, Daily, # 1 each, 5 Refills, Maintenance, 12/31/21 17:13:00 EST, Powder, COPD j44.9 Start Date: 12/31/21 Stop Date: 06/29/22 Status: Ordered Aspirin = 81 mg, By Mouth, Daily, 0 Refills, Maintenance Start Date: 07/06/10 Status: Ordered azithromycin 250 mg oral tablet 0 Refills, Maintenance, 08/18/22 14:09:00 EDT, Partial fill upon patient request if the prescription is for a schedule II opioid drug. Start Date: 08/18/22 Status: Ordered Berodual hydrobromidum Fenoteradi + Ipratropium Bromidum Berodual hydrobromidum Fenoteradi + Ipratropium Bromidum, 0 Refills, Maintenance, prn only, 03/15/23 8:36:00 EDT Start Date: 03/15/23 Status: Ordered Fish Oil = 1,000 mg, By Mouth, Daily, 0 Refills, Maintenance Start Date: 07/06/10 Status: Ordered Flax Seed Oil 0 Refills, Maintenance Start Date: 12/31/11 Status: Ordered Forastmin Forastmin, 12 mcg, 0 Refills, Maintenance, 1 capsule daily for inhalation, 03/15/23 8:34:00 EDT Start Date: 03/15/23 Status: Ordered levoFLOXacin 500 mg oral tablet 0 Refills, Maintenance, 08/18/22 14:10:00 EDT, Partial fill upon patient request if the prescription is for a schedule II opioid drug. Start Date: 08/18/22 Status: Ordered metoprolol 50 mg oral tablet 1 tablet = 50 mg, By Mouth, 2 times a day, for 90 days, tartrate, # 180 tablet, 3 Refills, Hard Stop 09/03/16 10:37:02, 09/09/15 10:37:02 Start Date: 09/09/15 Stop Date: 09/03/16 Status: Ordered Multivitamin By Mouth, Daily, 0 Refills, Maintenance Start Date: 07/06/10 Status: Ordered Norvasc 10 mg oral tablet 1 tablet = 10 mg, By Mouth, Daily, # 90 tablet, 3 Refills, Maintenance, 09/03/16 10:37:43 Start Date: 09/03/16 Status: Ordered Theospirex Theospirex, 300 mg, By Mouth, Daily, 0 Refills, Maintenance, 03/15/23 8:35:00 EDT Start Date: 03/15/23 Status: Ordered Problem List Condition Confirmation Course Effective Dates Status H ealth Status Informant CAD - Coronary artery disease Confirmed Active HTN - Hypertension Confirmed Active Hyperlipidemia Confirmed Active Social History Social History Type Response Smoking Status Never smoker; Tobacc o user in household: No entered on: 12/31/13 Sex Radiology * Event Display: CT Scan Chest, Non- Authored Date: * Event Display: CT Scan Chest, Non- Authored Date: Patient Care team information Care Team Personnel Name: Araceli Padilla MD Position: [facility] Physician - Primary Care Member Role: PCP Address: Address: [address] [place] [address]- Care Team Related Persons Name: DANII MCGILL Address: home [address] [place] [address] Name: JUAN MCGILL Address: home [address] [place] [address]
--- OUTSIDE RECORDS SUMMARY | 2023-09-05 23:02 | XMS_ITS | Continuity of Care Document ---
Author Name Unknown Organization [facility] Pulmonary M edicine Address [address] [place] [address]- Care Team Providers Care Planer Off Bearer Name Role Phone Max Hull MD Primary Care Physician [phone] [place] [facility] [place]03[place] - 06/03[place]22 [facility] [address] [place] [id number] Attending Physician: Woody Su MD Admitting Physician: Woody Su MD Referring Physician: Max Hull MD Allergies, Adverse Reactions, Alerts No Known Allergies [...] Refills, Maintenance Start Date: 07/06/10 Status: Ordered Fish Oil = 1,000 mg, By Mouth, Daily, 0 Refills, Maintenance Start Date: 07/06/10 Status: Ordered Flax Seed Oil 0 Refills, Maintenance Start Date: 12/31/11 Status: Ordered metoprolol 50 mg oral tablet [...] 09/03/16 10:37:43 Start Date: 09/03/16 Status: Ordered Symbicort 160mcg/4.5mcg Inhaler 2, puffs, Inhalation, 2 times a day, # 10.2 Gm, Refills 0, Maintenance, 06/28/18 9:22:45 EDT, Aerosol Start Date: 06/28/18 Status: Ordered Problem List Condition Effective Dates Status Health Status Inform ant CAD - Coronary artery disease(Confirmed) Active HTN - Hypertension(Confirmed) Active Hyperlipidemia(Confirmed) Active Social History Social History Type Response Smoking Status Never smoker; Tobacc o user in household: No entered on: 12/31/13 Sex
--- OUTSIDE RECORDS SUMMARY | 2023-09-05 23:02 | XMS_ITS | Continuity of Care Document ---
Author Name Unknown Organization [facility] Pulmonary M edicine Address [address] [place] [phone]- Care Team Providers Care Physician Practice Consultant Name Role Phone Max Hull MD Primary Care Physician Encounter [facility] [id number] Date(s): 05/04/22 - 06/03/22 [facility] Pulmonary Medicine [address] [place] [id number]- Attending Physician: April Henley Admitting Physician: Admtr, April Referring Physician: Admtr, Ar8 Allergies, Adverse Reactions, [...]
--- OUTSIDE RECORDS SUMMARY | 2023-09-05 23:02 | XMS_ITS | Continuity of Care Document ---
Author Name Unknown Organization [facility] Gastroenter ology Address [address] [place] [id number]- Care Team Providers Care Oncology Coordinator Name Role Phone Max Hull MD Primary Care Physician Encounter [facility] Date(s): 12/18/21 - 01/21/22 [facility]enter[facility] [address] [place] [address]- Encounter Diagnosis COPD with exacerbation(Discharge Diagnosis) - 12/26/21 Attending Physician: Gal Sanchez MD Admitting Physician: Gal Sanchez MD Referring Physician: Max Hull MD Allergies, [...] Active HTN - Hypertension(Confirmed) Active Hyperlipidemia(Confirmed) Active Diagnosis Diagnosis Type Effective Dates Health Status Clinical Service Informant COPD with exacerbation Discharge Diagnosis 12/26/21 Social History Social History Type Response Smoking Status Never smoker; Tobacc o user in household: No entered on: 12/31/13 Sex
--- OUTSIDE RECORDS SUMMARY | 2023-09-05 23:02 | XMS_ITS | Continuity of Care Document ---
Author Name Unknown Organization [facility] Pulmonary M edicine Address [address] [place] [id number]- Care Team Providers Care Aquatic Performer Name Role Phone Araceli Padilla MD Primary Care Physician [facility] [id number] Date(s): 05/06/23 - 09/03/23 [facility] Pulmonary Medicine [address] [place] [id number] Attending Physician: Woody Su MD Admitting Physician: Woody Su MD Referring Physician: Araceli Padilla MD Allergies, Adverse Reactions, Alerts No Known [...] in household: No entered on: 12/31/13 Sex Patient Care team information Care Team Personnel Name: Araceli Padilla MD Position: [facility] Physician - Primary Care Member Role: PCP Address: Address: [address] [place] [address]- Care Team Related Persons Name: DANII MCGILL Address: home [address] [place] [address] Name: JUAN MCGILL Address: home [address] [place] [address]
--- OUTSIDE RECORDS SUMMARY | 2023-09-05 23:02 | XMS_ITS | Continuity of Care Document ---
Author Name Unknown Organization [facility] Pulmonary M edicine Address [address] [place] [id number]- Care Team Providers Care Pipe Threading Machine Operator Name Role Phone Max Hull MD Primary Care Physician [phone] Encounter [facility] [place] [facility] [id number] Date(s): 11/23/21 - 12/23/21 [facility] Pulmonary Medicine [address] [place] [address]- Attending Physician: April Henley Admitting Physician: AdmApril giordano Referring Physician: Admtr ArYaa Allergies, Adverse Reactions, Alerts No Known Allergies Medications Aspirin = 81 mg, By Mouth, Daily, [...] day, # 10.2 Gm, Refills 0, Maintenance, 09/05/18 9:22:45 EDT, Aerosol Start Date: 06/28/18 Status: Ordered Problem List Condition Effective Dates Status Health Status Inform ant CAD - Coronary artery disease(Confirmed) Active HTN - Hypertension(Confirmed) Active Hyperlipidemia(Confirmed) Active Social History Social History Type Response Smoking Status Never smoker; Tobacc o user in household: No entered on: 12/31/13 Sex
--- OUTSIDE RECORDS SUMMARY | 2023-09-05 23:02 | XMS_ITS | Continuity of Care Document ---
Author Name Unknown Organization [facility] Address [address] [place] [id number]- Care Team Providers Care Customer Relations Representative Name Role Phone Kurtis STATON, Max Avalos Primary Care Physician [phone] [place] [facility] [place]/18/22 - 09/17/22 [facility] [address] [place] [id number]- Allergies, Adverse Reactions, Alerts No Known Allergies [...] opioid drug. Start Date: 08/18/22 Status: Ordered Fish Oil = 1,000 mg, By Mouth, Daily, 0 Refills, Maintenance Start Date: 07/06/10 Status: Ordered Flax Seed Oil 0 Refills, Maintenance Start Date: 12/31/11 Status: Ordered levoFLOXacin 500 mg oral tablet [...] 09/03/16 10:37:43 Start Date: 09/03/16 Status: Ordered Problem List Condition Confirmation Course Effective Dates Status H ealth Status Informant CAD - Coronary artery disease Confirmed Active HTN - Hypertension Confirmed Active Hyperlipidemia Confirmed Active Social History Social History Type Response Smoking Status Never smoker; Tobacc o user in household: No entered on: 12/31/13 Sex Patient Care team information Care Team Personnel Name: Kurtis STATON, Max Avalos Position: [facility] Outreach Member Role: PCP Address: Address: [address] [place] [address] - [address] [place] [address] [employer], [place] [address]- Care Team Related Persons Name: DANII MCGILL Address: home [address] [place] [address] Name: JUAN MCGILL Address: home [address] [place] [address]
--- OUTSIDE RECORDS SUMMARY | 2023-09-05 23:02 | XMS_ITS | Continuity of Care Document ---
Author Name Unknown Organization [facility] Address [address] [place] [address]- Care Team Providers Care Cordage Sales Representative Name Role Phone Max Hull MD Primary Care Physician [phone] [place] [facility] [place] [id number] Date(s): 12/22/21 - 01/21/22 [facility] [address] [place] [address]- Attending Physician: April Henley Admitting Physician: April Henley Referring Physician: April Henley Allergies, Adverse Reactions, Alerts No Known Allergies [...] Stop 09/03/16 10:37:02, 09/09/15 10:37:02 Start Date: 11/17/15 Stop Date: 09/03/16 Status: Ordered Multivitamin By [...]
--- OUTSIDE RECORDS SUMMARY | 2023-09-05 23:02 | XMS_ITS | Continuity of Care Document ---
Author Name Unknown Organization [facility] ed[facility] Address [address] [place] [address]- Care Team Providers Care Shrub Planter Name Role Phone Max Hull MD Primary Care Physician [phone] [place] [facility] [place] [facility] [id number] Date(s): 11/23/22 - 12/23/22 [facility] [address] [place] [address]- Attending Physician: April Henley Admitting Physician: Admtr, Ar8 Referring Physician: Admtr, Ar8 Allergies, Adverse Reactions, [...] in household: No entered on: 12/31/13 Sex Note * Event Display: CT Scan Chest, Non- Authored Date: Patient Care team information Care Team Personnel Name: Kurtis STATON, Max Avalos Position: [facility] Outreach Member Role: PCP Address: Address: [address] [place] [address] - [address] [facility], [place] [address]- Care Team Related Persons Name: DANII MCGILL Address: [address] [place] [address] Name: JUAN MCGILL Address: [address] [place] [address]
--- OUTSIDE RECORDS SUMMARY | 2023-09-05 23:02 | XMS_ITS | Continuity of Care Document ---
Author Name Unknown Organization [facility] ed[facility] Address [address] [place] [address]- Care Team Providers Care Ball Sorter Name Role Phone Kurtis STATON, Max Avalos Primary Care Physician [phone] [place] [facility] [id number] Date(s): 08/25/22 - 12/23/22 [facility] [address] [place] [address] Attending Physician: Woody Su MD Admitting Physician: Woody Su MD Allergies, Adverse Reactions, Alerts No Known [...] Personnel Name: Kurtis STATON, Max Avalos Position: [facility] Outreach Member Role: PCP Address: Address: [address] [place] [address] - [address], [place] [address]- Care Team Related Persons Name: DANII MCGILL Address: [address] [place] [address] Name: JUAN MCGILL Address: [address] [place] [address]
--- OUTSIDE RECORDS SUMMARY | 2023-09-05 23:02 | XMS_ITS | Continuity of Care Document ---
Author Name Unknown Organization [facility] ed[facility] Address [address] [place] [address]- Care Team Providers Care Temporary Receptionist Name Role Phone Max Hull MD Primary Care Physician En[place] [facility] [place] [id number] Date(s): 10/15/21 - 12/23/21 [facility] [address] [place] [address] Attending Physician: Maxine Jung MD Admitting Physician: Maxine Jung MD Referring Physician: Max Hull MD Allergies, [...]
[2023-09-05 23:05] LABS: MANUAL DIFF FLAG NO
[2023-09-05 23:07] LABS: Basophils Percent Auto 0.4 % (0-2); Eosinophils Percent Auto 0.4 % (0-4); Hematocrit 42.8 % (42.0-52.0); Hemoglobin 14.9 g/dl (14.0-18.0); Imm Gran Abs Auto 0.03 X10*3/uL (0.00-0.03); Imm Gran Pct Auto 0.4 % (0.0-0.4); Lymphocytes Absolute Auto 2.1 X10*3/uL (1.2-4.9); Lymphocytes Percent Auto 24.9 % (20-40); Mean Corpuscular HGB Conc 34.8 g/dl (31.0-36.0); Mean Corpuscular Hemoglobin 31.3 pg (27.0-33.0); Mean Corpuscular Volume 89.9 fL (80.0-98.0); Mean Platelet Volume 9.4 fL (9.4-12.4); Monocytes Absolute Auto 0.8 X10*3/uL (0.1-1.2); Neutrophils Absolute Auto 5.3 x10*3/uL (2.0-8.3); Neutrophils Percent Auto 63.9 % (45-73); Platelet Count 202 X10*3/uL (160-400); Red Blood Count 4.76 X10*6/uL (4.60-5.80); Red Cell Distribution Width 12.3 % (11.0-16.0); White Blood Count 8.2 X10*3/uL (4.8-10.8)
[2023-09-05 23:16] VITALS: PULSE 102; RESP 26; O2SAT 96
[2023-09-05] MEDS: Albuterol Sulfate 5 MG, Albuterol/Iprat 2.5/0.5MG 3 ML 3 ML INHALE (23:16)
[2023-09-05 23:22] LABS: Alanine Aminotransferase 34 U/L (0-40); Albumin Level 4.3 g/dL (3.5-5.0); Alkaline Phosphatase 94 U/L (39-117); Anion Gap 20 (12-20); Aspartate Amino Transferase 31 U/L (5-37); Bilirubin Total 0.9 mg/dL (0.0-1.0); Blood Urea Nitrogen 25 mg/dL (9-16); Calcium 9.7 mg/dL (8.4-10.2); Carbon Dioxide 21 mmol/L (22-29); Chloride 108 mmol/L (96-108); Creatinine Clr Calc Pharmacy 47.1; Estimated Glomerular Filt Rate 54; Glucose Random 118 mg/dL (60-115); Potassium 4.1 mmol/L (3.3-5.1); Sodium 145 mmol/L (135-145); Total Protein 7.6 g/dL (6.5-8.0)
[2023-09-05 23:26] LABS: Troponin-I High Sensitivity 5.6 ng/L (<3.5-35.0)
[2023-09-05 23:33] LABS: B Type Natriuretic Peptide 35 pg/mL (<100)
[2023-09-05 23:45] LABS: D Dimer High Sensitivity < 150 NG/ML
[2023-09-05 23:47] LABS: Lactic Acid 1.3 mmol/L (0.5-2.0)
[2023-09-05 23:58] LABS: Influenza A PCR NEGATIVE (Negative); Influenza B PCR NEGATIVE (Negative); Resp Syncy Virus RNA Qual PCR NEGATIVE (Negative); SARS COV2 PCR INHOUSE NEGATIVE (Negative)
[2023-09-06] VITALS (12 sets, daily range): BP systolic 113–141; BP diastolic 67–80; PULSE 58–104; RESP 14–22; TEMP 36.4–37.2; O2SAT 94–99; BMI 22.4
[2023-09-06 01:18] LABS: VBG Base Excess 1.8 mmol/L; VBG HCO3 26 mmol/L (22-26); VBG pCO2 40 mmHg; VBG pH 7.41 (7.32-7.43); VBG pO2 64 mmHg
[2023-09-06 01:28] LABS: Venous Blood Gas Refer to POC result
--- NOTE | 2023-09-06 01:33 | PM.IMHP ---
History of Present Illness Date of Service: 09/06/23 Chief Complaint: Dyspnea This is a 77-year-old male with pertinent history of chronic hypoxemic respiratory failure due to COPD, former tobacco use disorder, coronary artery disease who presents to the emergency department for evaluation of dyspnea. Patient states his symptoms started on the day of presentation. He started having dyspnea which was worse with exertion. It was associated with nonproductive cough and wheezing. Patient states he uses 2 L oxygen at home. EMS found patient to be hypoxemic on his usual 2 L supplemental oxygen. No sick contacts. No fever, chills, chest discomfort, palpitations, abdominal pain, changes in urinary or bowel habits. Patient is Grenadian speaking and history obtained with the help of precinct captain services. In the emergency department, patient initially was on BiPAP and was transitioned to 4 L supplemental oxygen. Review of Systems Constitutional: Constitutional: Reports no additional constitutional complaints Cardiovascular: Cardiovascular: Reports dyspnea on exertion Respiratory: Respiratory: Reports cough, Reports dyspnea on exertion and Reports wheezing Gastrointestinal: Gastrointestinal: Reports no additional gastrointestinal complaints Genitourinary: Genitourinary: Reports no additional male genitourinary complaints Allergic/Immunologic: Allergic/Immunologic: Reports wheezing [facility] Medical History Pulmonary nodules Heart attack Family History Father Lung cancer Mother Hypertension Surgical History H/O right knee surgery H/O angioplasty Social History Housing: House Alcohol intake: former Patient Tobacco Use Status: Former Tobacco user Quit Date: 1997 Smoked in Last 30 Days: No e-Cigarette/Vaping Use: Never Used Use of substances other than those prescribed or required for medical reasons: No Advance Directives: No Advance Directives Information Provided: No Current occupational status: retired Cognitive needs: No Hearing needs: No Vision needs: Yes Meds Allergies Allergy/AdvReac Type Severity Reaction Status Date / Time roflumilast [From Daliresp] AdvReac Intermediate Shortness Verified 08/22/23 15:28 of Breath fluticasone furoate AdvReac Difficulty Verified 08/22/23 15:28 [From Trelegy Ellipta] Breathing vilanterol AdvReac Difficulty Verified 08/22/23 15:28 [From Trelegy Ellipta] Breathing zetia AdvReac Blurred Uncoded 08/22/23 15:28 vision Physical Exam Vital Signs and Narrative: Vital Signs: Last Vital Signs Temp 98.1 F 09/05/23 22:44 Pulse 102 H 09/05/23 23:16 Resp 26 H 09/05/23 23:16 BP 146/74 H 09/05/23 22:44 Pulse Ox 97 09/05/23 22:44 O2 Del Method BiPAP 09/05/23 22:44 BMI result Body Mass Index 24.1 Middle-aged male lying in bed in mild distress on supplemental oxygen Neck supple, no JVD Tachycardic with regular rhythm, S1-S2 heard Bilateral wheezing Abdomen soft nontender, no guarding, no rigidity Patient is awake, alert and oriented to self, place, time and person ; no focal motor deficit Psych: Normal mood No pedal edema Results Labs 09/05/23 23:01 09/05/23 23:01 Labs: Laboratory Results - last 24 hr 09/05/23 09/05/23 09/06/23 23:01 23:31 01:11 MCV 89.9 MCH 31.3 MCHC 34.8 RDW 12.3 Plt Count 202 MPV 9.4 Immature Gran % (Auto) 0.4 Neut % (Auto) 63.9 Lymph % (Auto) 24.9 [place] % (Auto) 10.0 Eos % (Auto) 0.4 Baso % (Auto) 0.4 Lymph # (Auto) 2.1 [place] # (Auto) 0.8 Eos # (Auto) 0.0 Baso # (Auto) 0.0 Abs Immat Gran (auto) 0.03 Absolute Neuts (auto) 5.3 Absolute Nucleated RBC 0.000 Nucleated RBC % (auto) 0.0 D-Dimer High Sensitivty < 150 VBG pH 7.41 VBG pCO2 40 VBG pO2 64 VBG HCO3 26 VBG O2 Saturation 92.0 VBG Base Excess 1.8 Anion Gap 20 Estim Creat Clear Calc 47.1 Estimated GFR 54 Random Glucose 118 H Lactic Acid 1.3 Calcium 9.7 D Total Bilirubin 0.9 AST 31 ALT 34 Alkaline Phosphatase 94 B-Natriuretic Peptide 35 Total Protein 7.6 Albumin 4.3 Influenza Type A (PCR) NEGATIVE Influenza Type B (PCR) NEGATIVE RSV RNA Qual (PCR) NEGATIVE SARS-CoV-2 RNA (RT-PCR) NEGATIVE Imaging Radiologist's Impressions: Impressions Chest X-Ray 09/05/23 23:05 IMPRESSION: Severe emphysematous changes. No acute intrathoracic disease. Assessment and Plan (1) Acute and chronic respiratory failure with hypoxia: Status: Acute Plan This is a 77-year-old male with pertinent history of chronic hypoxemic respiratory failure due to COPD, former tobacco use disorder, coronary artery disease who presents to the emergency department for evaluation of dyspnea. #. Acute on chronic hypoxemic respiratory failure due to acute exacerbation of COPD: Will admit patient with supplemental oxygen. Scheduled and p.r.n. DuoNebs. Initiating systemic steroids. Continue home inhaler. Monitor oxygen saturation and wean as tolerated, maintain oxygen saturation greater than 88%. #. Coronary artery disease: On high-intensity statin and beta-eve. Not on antiplatelet agent Med rec pending DVT prophylaxis: Lovenox Admit as inpatient and will require two night minimum hospital stay for supplemental oxygen and IV steroids (as above), which is not possible in a lesser acute setting. Quality Stroke Does the patient have a stroke diagnosis?: No VTE Prior VTE?: No VTE Risk Level:: Medical - moderate - high VTE Device Contraindication: Treatment Not Indicated VTE Drug Contraindication: N/A - Med Ordered
[2023-09-06] MEDS: Enoxaparin Sodium 40 MG/0.4 ML SYRINGE SUBCUT (02:21)
[2023-09-06] MEDS: methylPREDNISolone Sod Succ 40 MG/ML VIAL IVPUSH ×2 (02:21→13:29)
--- NOTE | 2023-09-06 02:44 | PC.NURSE ---
Patient is alert and oriented x3, VSS. Lungs are diminished throughout. Patient reporting occasional non-productive cough. Patient maintaining stable O2 sat 94-97% on supplemental O2 at 2 LPM via NC. RR 20, respirations even and unlabored. Patient denies any pain. Patient provided with tuna fish sandwich and kristy kaci, tolerated well. Patient is able to make his needs known, call viera within patient's reach.
[2023-09-06 06:05] LABS: MANUAL DIFF FLAG NO
[2023-09-06 06:10] LABS: Basophils Percent Auto 0.2 % (0-2); Eosinophils Percent Auto 0.4 % (0-4); Hematocrit 41.8 % (42.0-52.0); Hemoglobin 14.3 g/dl (14.0-18.0); Imm Gran Abs Auto 0.01 X10*3/uL (0.00-0.03); Imm Gran Pct Auto 0.2 % (0.0-0.4); Lymphocytes Absolute Auto 0.6 X10*3/uL (1.2-4.9); Lymphocytes Percent Auto 13.8 % (20-40); Mean Corpuscular HGB Conc 34.2 g/dl (31.0-36.0); Mean Corpuscular Hemoglobin 31.4 pg (27.0-33.0); Mean Corpuscular Volume 91.7 fL (80.0-98.0); Mean Platelet Volume 10.3 fL (9.4-12.4); Monocytes Absolute Auto 0.1 X10*3/uL (0.1-1.2); Monocytes Percent Auto 1.1 % (2-11); Neutrophils Absolute Auto 3.8 x10*3/uL (2.0-8.3); Neutrophils Percent Auto 84.3 % (45-73); Platelet Count 193 X10*3/uL (160-400); Red Blood Count 4.56 X10*6/uL (4.60-5.80); Red Cell Distribution Width 12.3 % (11.0-16.0); White Blood Count 4.5 X10*3/uL (4.8-10.8)
[2023-09-06 06:23] LABS: Anion Gap 14 (12-20); Blood Urea Nitrogen 25 mg/dL (9-16); Calcium 9.4 mg/dL (8.4-10.2); Carbon Dioxide 24 mmol/L (22-29); Chloride 108 mmol/L (96-108); Creatinine Clr Calc Pharmacy 61.4; Estimated Glomerular Filt Rate > 60; Glucose Random 228 mg/dL (60-115); Potassium 3.9 mmol/L (3.3-5.1); Sodium 142 mmol/L (135-145)
[2023-09-06] MEDS: Albuterol/Iprat 2.5/0.5MG 3 ML AMPUL.NEB INHALE ×3 (07:21→19:05)
[2023-09-06] MEDS: 0.9 % Sodium Chloride Flush 3 ML SYRINGE IVFLUSH ×3 (07:29→20:56)
--- NOTE | 2023-09-06 07:30 | PC.NURSE ---
patient is alert and oriented, laying in bed, primarily slovenian speaking only able to make needs known., Son at bedside vsiting. VSS, skin PWD. call viera within reach
--- NOTE | 2023-09-06 07:55 | PHA.MEDREC ---
Pharmacy Consult ? Medication Reconciliation Pharmacy has completed the medication reconciliation. Spoke to patients son who translated for us. Patient confirms he is on a heart medication and cholesterol medication, he gets these ones from his doctor in [place] this is why there is no claim history. Patient also confirmed hes on eye drops for her right eye.
[2023-09-06] MEDS: Aspirin Enteric Coated 81 MG TABLET.DR PO (08:15)
[2023-09-06] MEDS: Atorvastatin Calcium 80 MG TABLET PO (08:15)
[2023-09-06] MEDS: Metoprolol Tartrate 50 MG TABLET PO ×2 (08:15→20:56)
--- NOTE | 2023-09-06 08:19 | PC.NURSE ---
patient medicated per DEC, takes pills whole with water
--- NOTE | 2023-09-06 09:06 | HO.PM.IMPN ---
Subjective Subjective Date of Service: 09/06/23 Interval History: sob Physical Exam Vital Signs: Vital Signs: Last Vital Signs Temp 97.6 F 09/06/23 06:29 Pulse 97 09/06/23 07:26 Resp 18 09/06/23 07:26 BP 131/77 09/06/23 07:26 Pulse Ox 99 09/06/23 07:26 O2 Del Method Nasal Cannula 09/06/23 07:26 O2 Flow Rate 2 09/06/23 07:26 BMI result Body Mass Index 24.1 General: AO X 3, mild distress Resp: diminshed bilateral, accessory muscles used CVS: S1,S2,RRR GI: soft, non tender, non distended Neuro: motor grossly intact, alert Psych: appropriate affect, appropriate insight Objective Data Active Medications Acetaminophen (Acetaminophen 325 Mg Tablet) 650 mg PO Q6H PRN PRN Reason: Pain, Mild (Pain Scale 1-3) Albuterol/Ipratropium (Albuterol/Iprat 2.5/0.5mg 3 Ml Ampul.Neb) 3 ml INHALE RQ4H WHILE AWAKE [facility] Last Admin: 09/06/23 07:21 Dose: 3 ml Documented By: LANA Albuterol/Ipratropium (Albuterol/Iprat 2.5/0.5mg 3 Ml Ampul.Neb) 3 ml INHALE Q4H PRN PRN Reason: Wheezing Aspirin (Aspirin Enteric Coated 81 Mg Tablet.Dr) 81 mg PO DAILY [facility] Last Admin: 09/06/23 08:15 Dose: 81 mg Documented By: NROMA Atorvastatin Calcium (Atorvastatin Calcium 80 Mg Tablet) 80 mg PO DAILY [facility] Last Admin: 09/06/23 08:15 Dose: 80 mg Documented By: NORMA Dorzolamide/Timolol (Dorzolamide/Timolo 2.23%/0.68% 10 Ml Drbtl) 1 drop EYE-RIGHT BID [facility] Enoxaparin Sodium (Enoxaparin Sodium 40 Mg/0.4 Ml Syringe) 40 mg SUBCUT Q24H [facility] Last Admin: 09/06/23 02:21 Dose: 40 mg Documented By: MANISH Latanoprost (Latanoprost 0.005 % Ophth Melissa 2.5 Ml Drops) 1 drop EYE-RIGHT BEDTIME [facility] Melatonin (Melatonin 3 Mg Tablet) 6 mg PO BEDTIME PRN PRN Reason: Insomnia Methylprednisolone Sodium Succinate (Methylprednisolone Sod Succ 40 Mg/Ml Vial) 40 mg IVPUSH Q12H [facility] Last Admin: 09/06/23 02:21 Dose: 40 mg Documented By: MANISH Metoprolol Tartrate (Metoprolol Tartrate 50 Mg Tablet) 50 mg PO BID [facility]; Protocol Last Admin: 09/06/23 08:15 Dose: 50 mg Documented By: NORMA Ondansetron HCl (Ondansetron Hcl 4 Mg/2 Ml Vial) 4 mg IVPUSH Q8H PRN PRN Reason: Nausea and Vomiting Sodium Chloride (0.9 % Sodium Chloride Flush 3 Ml Syringe) 3 ml IVFLUSH QSHIFT [facility] Last Admin: 09/06/23 07:29 Dose: 3 ml Documented By: NORMA Timolol Maleate (Timolol Maleate 0.5 % Oph Melissa 5 Ml Drbtl) 1 drop EYE-RIGHT BID [facility] Labs 09/06/23 04:34 09/06/23 04:34 Labs: Laboratory Results - last 24 hr 09/05/23 09/05/23 09/06/23 23:01 23:31 01:11 MCV 89.9 MCH 31.3 MCHC 34.8 RDW 12.3 Plt Count 202 MPV 9.4 Immature Gran % (Auto) 0.4 Neut % (Auto) 63.9 Lymph % (Auto) 24.9 [place] % (Auto) 10.0 Eos % (Auto) 0.4 Baso % (Auto) 0.4 Lymph # (Auto) 2.1 [place] # (Auto) 0.8 Eos # (Auto) 0.0 Baso # (Auto) 0.0 Abs Immat Gran (auto) 0.03 Absolute Neuts (auto) 5.3 Absolute Nucleated RBC 0.000 Nucleated RBC % (auto) 0.0 D-Dimer High Sensitivty < 150 VBG pH 7.41 VBG pCO2 40 VBG pO2 64 VBG HCO3 26 VBG O2 Saturation 92.0 VBG Base Excess 1.8 Anion Gap 20 Estim Creat Clear Calc 47.1 Estimated GFR 54 Random Glucose 118 H Lactic Acid 1.3 Calcium 9.7 D Total Bilirubin 0.9 AST 31 ALT 34 Alkaline Phosphatase 94 B-Natriuretic Peptide 35 Total Protein 7.6 Albumin 4.3 Influenza Type A (PCR) NEGATIVE Influenza Type B (PCR) NEGATIVE RSV RNA Qual (PCR) NEGATIVE SARS-CoV-2 RNA (RT-PCR) NEGATIVE 09/06/23 04:34 MCV 91.7 MCH 31.4 MCHC 34.2 RDW 12.3 Plt Count 193 MPV 10.3 Immature Gran % (Auto) 0.2 Neut % (Auto) 84.3 H Lymph % (Auto) 13.8 L [place] % (Auto) 1.1 L Eos % (Auto) 0.4 Baso % (Auto) 0.2 Lymph # (Auto) 0.6 L [place] # (Auto) 0.1 Eos # (Auto) 0.0 Baso # (Auto) 0.0 Abs Immat Gran (auto) 0.01 Absolute Neuts (auto) 3.8 Absolute Nucleated RBC 0.000 Nucleated RBC % (auto) 0.0 D-Dimer High Sensitivty VBG pH VBG pCO2 VBG pO2 VBG HCO3 VBG O2 Saturation VBG Base Excess Anion Gap 14 Estim Creat Clear Calc 61.4 Estimated GFR > 60 Random Glucose 228 H Lactic Acid Calcium 9.4 Total Bilirubin AST ALT Alkaline Phosphatase B-Natriuretic Peptide Total Protein Albumin Influenza Type A (PCR) Influenza Type B (PCR) RSV RNA Qual (PCR) SARS-CoV-2 RNA (RT-PCR) Assessment and Plan (1) Acute and chronic respiratory failure with hypoxia: Status: Acute Plan 77M PMH CAD ([place] in 1990s), chronic hypoxic respiratory failure due to severe copd on 2L home o2, presented with sob Acute on chronic hypoxic respiratory failure secondary to COPD with acute decompensation IV steroids, DuoNebs, azithromycin Wean O2 as tolerated Coronary disease Aspirin, statin DVT prophylaxis with Lovenox Full code reason for continued hospitalization:still with accessory muscles, sob Quality Stroke Does the patient have a stroke diagnosis?: No VTE Prior VTE?: No VTE Risk Level:: Medical - moderate - high VTE Device Contraindication: Treatment Not Indicated VTE Drug Contraindication: N/A - Med Ordered
[2023-09-06] MEDS: Azithromycin 500 MG TABLET PO (09:19)
--- NOTE | 2023-09-06 13:31 | PC.NURSE ---
patient sitting up eating lunch, respirations equal and unlabored. patient on 2l NC. patient ambulated to bathroom with tech, has strong gait. patient skin PWD, VSS. awaiting bed inpatient
--- NOTE | 2023-09-06 16:16 | PC.NURSE ---
patient resting quietly in bed, VSS, skin PWD. patient has call viera within reach, on 2l NC patient respirations equal and unlabored.
[2023-09-06] MEDS: Latanoprost 0.005 % Ophth Sol 2.5 ML DROPS 1 DROP EYE-RIGHT (21:40)
[2023-09-06] MEDS: timoloL maleate 0.5 % Oph Sol 5 ML DRBTL 1 DROP EYE-RIGHT (21:41)
[2023-09-06] MEDS: Dorzolamide/Timolo 2.23%/0.68% 10 ML DRBTL 1 DROP EYE-RIGHT (21:42)
[2023-09-07] MEDS: Enoxaparin Sodium 40 MG/0.4 ML SYRINGE SUBCUT (01:46)
[2023-09-07] MEDS: methylPREDNISolone Sod Succ 40 MG/ML VIAL IVPUSH (01:46)
[2023-09-07 03:48] VITALS: BP 121/65; PULSE 66; RESP 16; TEMP 36.8; O2SAT 95
[2023-09-07 05:48] LABS: Hematocrit 40.5 % (42.0-52.0); Hemoglobin 13.6 g/dl (14.0-18.0); Mean Corpuscular HGB Conc 33.6 g/dl (31.0-36.0); Mean Corpuscular Hemoglobin 31.6 pg (27.0-33.0); Mean Platelet Volume 9.8 fL (9.4-12.4); Platelet Count 192 X10*3/uL (160-400); Red Blood Count 4.31 X10*6/uL (4.60-5.80); Red Cell Distribution Width 12.6 % (11.0-16.0); White Blood Count 11.5 X10*3/uL (4.8-10.8)
[2023-09-07 06:07] LABS: Anion Gap 10 (12-20); Blood Urea Nitrogen 21 mg/dL (9-16); Calcium 9.1 mg/dL (8.4-10.2); Carbon Dioxide 28 mmol/L (22-29); Chloride 109 mmol/L (96-108); Creatinine Clr Calc Pharmacy 72.4; Estimated Glomerular Filt Rate > 60; Glucose Fasting 144 mg/dL (60-99); Potassium 4.7 mmol/L (3.3-5.1); Sodium 142 mmol/L (135-145)
[2023-09-07 07:33] VITALS: BP 116/60; PULSE 66; RESP 16; TEMP 36.4; O2SAT 97
[2023-09-07] MEDS: Albuterol/Iprat 2.5/0.5MG 3 ML AMPUL.NEB INHALE (07:43)
[2023-09-07 07:55] VITALS: PULSE 66; RESP 16; O2SAT 97
[2023-09-07] MEDS: Azithromycin 500 MG TABLET PO (08:15)
[2023-09-07] MEDS: Metoprolol Tartrate 50 MG TABLET PO (08:15)
[2023-09-07] MEDS: Atorvastatin Calcium 80 MG TABLET PO (08:15)
[2023-09-07] MEDS: Aspirin Enteric Coated 81 MG TABLET.DR PO (08:16)
[2023-09-07] MEDS: timoloL maleate 0.5 % Oph Sol 5 ML DRBTL 1 DROP EYE-RIGHT (08:17)
[2023-09-07] MEDS: Dorzolamide/Timolo 2.23%/0.68% 10 ML DRBTL 1 DROP EYE-RIGHT (08:18)
[2023-09-07] MEDS: 0.9 % Sodium Chloride Flush 3 ML SYRINGE IVFLUSH (08:26)
[2023-09-07] MEDS: guaiFENesin LA 600 MG TAB.ER.12H PO (10:27)
--- NOTE | 2023-09-07 10:47 | P.DS_ITS ---
DS: Providers Provider Date of Service: 09/07/23 Date of admission: 09/06/23 01:31 Primary care physician: Araceli Padilla MD DS: Diagnosis Discharge Diagnosis (1) Acute and chronic respiratory failure with hypoxia: Status: Acute (2) COPD (chronic obstructive pulmonary disease): Status: Acute DS: Summary Hospital Course Hospital Course: Admission note HPI This is a 77-year-old male with pertinent history of chronic hypoxemic respiratory failure due to COPD, former tobacco use disorder, coronary artery disease who presents to the emergency department for evaluation of dyspnea. Patient states his symptoms started on the day of presentation. He started having dyspnea which was worse with exertion. It was associated with nonproductive cough and wheezing. Patient states he uses 2 L oxygen at home. EMS found patient to be hypoxemic on his usual 2 L supplemental oxygen. No sick contacts. No fever, chills, chest discomfort, palpitations, abdominal pain, changes in urinary or bowel habits. Patient is Indonesian speaking and history obtained with the help of continuous conveyor screen drier services. In the emergency department, patient initially was on BiPAP and was transitioned to 4 L supplemental oxygen. Hospital course Treated for COPD exacerbation with IV steroids, Nebulizers and Antibiotics with O2 supplement. He improved quickly over the course of hospital stay with resolution of dyspnea and wheezing and becoming able to ambulate with no SOB as his O2 supplement dropped down to his baseline of 2L. The patient made quick recovary and did not need a 2nd night stay in the hospital. Continue Prednisone and Azithromycin as prescribed Mucinex for thick secretions Aspirin for heart protection Use your home nebulizers 3-4 times daily for the next 3 days then as needed. Time Attestation Discharge coordination time: Greater than 30 minutes Quality: Safe Use of Opioids Does Pt have an Active Cancer Diagnosis on the Problem List?: No Quality: Stroke Does the patient have a stroke diagnosis?: No Physical Exam Vital Signs: Vital Signs: Last Vital Signs Temp 97.6 F 09/07/23 07:33 Pulse 66 09/07/23 07:55 Resp 16 09/07/23 07:55 BP 116/60 09/07/23 07:33 Pulse Ox 97 09/07/23 07:33 O2 Del Method Room Air 09/07/23 07:33 O2 Flow Rate 2 09/07/23 03:48 BMI result Body Mass Index 22.4 Const: Other: Constitutional : Awake, interactive, not in distress Neck : Normal inspection, Supple Cardiovascular : RRR, no JVP, no lower extremity edema Respiratory : good bilateral air entry, no crackles, scattered wheezes Gastrointestinal: soft, lax, Normal bowel sounds, Non tender Skin : Warm, Dry Neurological : Alert & oriented x3, No focal deficit DS: Data Data Completed and Pending Labs on day of discharge: Laboratory Results - last 24 hr 09/07/23 05:26 WBC 11.5 H RBC 4.31 L Hgb 13.6 L Hct 40.5 L MCV 94.0 MCH 31.6 MCHC 33.6 RDW 12.6 Plt Count 192 MPV 9.8 Absolute Nucleated RBC 0.000 Nucleated RBC % (auto) 0.0 Sodium 142 Potassium 4.7 D Chloride 109 H Carbon Dioxide 28 Anion Gap 10 L BUN 21 H Creatinine 0.82 Estim Creat Clear Calc 72.4 Estimated GFR > 60 Fasting Glucose 144 H Calcium 9.1 Preliminary micro results at discharge 09/06/23 00:28 Blood Culture - Preliminary Blood - Venous No growth after 24 hours. 09/05/23 23:31 Blood Culture - Preliminary Blood - Venous No growth after 24 hours. Imaging Chest x-ray: Radiologist's impression: ITS Impressions Chest X-Ray 09/05/23 23:05 IMPRESSION: Severe emphysematous changes. No acute intrathoracic disease. Discharge Plan Discharge Anticipated Discharge Date/Time: 09/07/23 10:42 Patient Disposition: Home, Self-Care Discharge Diagnosis: COPD exacerbation Referrals: Araceli Padilla MD [Primary Care Provider] - 1 Week Discharge Medications: New aspirin 81 mg Tablet,Delayed Release (Dr/Ec) 81 mg PO DAILY Qty: 90 0RF azithromycin 500 mg Tablet 500 mg PO Q24H Qty: 3 0RF guaifenesin [Mucinex] 600 mg Tablet Extended Release 12hr 600 mg PO BID Qty: 20 0RF prednisone 20 mg tablet 40 mg PO DAILY Qty: 8 0RF Continued latanoprost 0.005 % drops 1 drp ophthalmic-Right BEDTIME dorzolamide-timolol 22.3-6.8 mg/mL drops 1 drp ophthalmic-Right BID timolol maleate 0.5 % drops 1 drp ophthalmic-Right BID Anoro Ellipta 62.5-25 mcg/actuation Blister With Device 1 inh INHALATION DAILY Ipratropium [place]/Fenoterol 1 inh inhalation BID-TID formoterol fumarate 12 mcg Capsule, W/Inhalation Device 12 mcg INHALATION BID amlodipine 10 mg Tablet 10 mg PO DAILY theophylline 300 mg Capsule,Extended Release 24hr 300 mg PO DAILY atorvastatin 80 mg tablet 80 mg PO DAILY Qty: 90 0RF metoprolol tartrate 50 mg tablet 50 mg PO BID Qty: 180 0RF albuterol sulfate 90 mcg/actuation HFA aerosol inhaler 2 puff inhalation QID PRN (Reason: shortness of breath or wheezing) Qty: 8.5 3RF (DME) nebulizers Misc See Rx Instructions .Route Qty: 1 0RF Rx Instructions: 1 q6 prn albuterol sulfate 0.63 mg/3 mL solution for nebulization 0.63 mg inhalation Q4-6H PRN (Reason: shortness of breath or wheezing) Qty: 270 3RF Discharge Orders: Discharge Order (Routine); Ordered 09/07/23 Ordered By: Mohamud Jain Diet: Advance to usual diet Activity on Discharge: As tolerated Stand Alone Forms: Patient Portal Discharge page Care Plan Goals: Read below Health Concerns: Read below Plan of Treatment: Read below Assessment: Treated for COPD exacerbation with steroids, nebulizers and oxygen with good response. Continue Prednisone and Azithromycin as prescribed Mucinex for thick secretions Aspirin for heart protection Use your home nebulizers 3-4 times daily for the next 3 days then as needed.
--- NOTE | 2023-09-07 10:47 | MHC.CM.PN ---
MD order for home, self-care prior to CM interview. CM acknowledge.
== END 2023-09-07 13:02 | disposition home or self-care (01) | DRG 190 ==
LOC: HO.ED 09-06 01:30 → HO.EDOVER 09-06 01:36 → HO.S3 09-06 08:23 → HO.EDOVER 09-06 12:41 → HO.S3 09-06 17:55
PROVIDERS: Internal Medicine; Admitting Provider Student in an Organized Health Care Education/Training Program; Emergency Provider Internal Medicine; PCP Internal Medicine; Visit Provider Student in an Organized Health Care Education/Training Program
DX: J44.1 Chronic obstructive pulmonary disease with (acute) exacerbation (principal); J96.21 Acute and chronic respiratory failure with hypoxia; I25.10 Atherosclerotic heart disease of native coronary artery without angina pectoris; Z20.822 Contact with and (suspected) exposure to COVID-19; Z99.81 Dependence on supplemental oxygen; Z87.891 Personal history of nicotine dependence; Z79.82 Long term (current) use of aspirin; Z79.899 Other long term (current) drug therapy
CPT/HCPCS: 0241U; 36415; 71045; 80048; 80053; 82803; 83605; 83880; 84484; 85025; 85027; 85379; 87040; 93005; 94640; 99221; 99285; J1650; J2920

== ENCOUNTER → 2023-09-06 01:31 | Outpatient (BNV) | payer MEDICARE, SELFPAY | PROVIDERS: Admitting Provider Student in an Organized Health Care Education/Training Program; Emergency Provider Internal Medicine; Visit Provider Student in an Organized Health Care Education/Training Program | DX: J96.21 Acute and chronic respiratory failure with hypoxia (principal); J44.9 Chronic obstructive pulmonary disease, unspecified | CPT/HCPCS: 99222; 99239; 99499 ==

== ENCOUNTER 2023-09-21 14:40 | Outpatient (AMB) | payer MEDICARE, SELFPAY ==
[2023-09-21 15:04] VITALS: BP 124/52; PULSE 74; O2SAT 90; BMI 24.5
--- NOTE | 2023-09-21 15:04 | MHC.OFFVIS ---
Intake Vital Signs 09/21/23 15:04 Height 5 ft 8 in Weight 161 lb BMI 24.5 BP 124/52 L Blood Pressure Location Lt brachial Position Sitting Pulse 74 Pulse Source Pulse Oximeter Pulse Oximetry (%) 90 L Oxygen Delivery Method Room Air Intake Visit Reasons: COPD Intake Note: pt is here for follow up and was in the hospital for breathing issue, due to low oxygen ambulance was called. Policy Officer Required: No Allergies roflumilast [From Daliresp] Adverse Reaction (Intermediate, Verified 09/21/23 15:37) Shortness of Breath fluticasone furoate [From Trelegy Ellipta] Adverse Reaction (Verified 09/21/23 15:37) Difficulty Breathing vilanterol [From Trelegy Ellipta] Adverse Reaction (Verified 09/21/23 15:37) Difficulty Breathing zetia Adverse Reaction (Uncoded 09/21/23 15:37) Blurred vision Medication List - Last Reconciled 09/21/23 by Lisy Love MD [Ipratropium [place]/Fenoterol 1 inh inhalation BID-TID] albuterol sulfate 90 mcg/actuation 2 puffs inhalation QID PRN albuterol sulfate 0.63 mg (3 mL) inhalation Q4-6H PRN amlodipine 10 mg PO DAILY aspirin 81 mg PO DAILY atorvastatin 80 mg PO DAILY dorzolamide-timolol 22.3-6.8 mg/mL 1 drp ophthalmic-Right BID formoterol fumarate 12 mcg inhalation BID guaifenesin ER (Mucinex) 600 mg PO BID latanoprost 0.005% 1 drp ophthalmic-Right BEDTIME metoprolol tartrate 50 mg PO BID nebulizers 1 q6 prn theophylline ER 300 mg PO DAILY timolol maleate 0.5% 1 drp ophthalmic-Right BID umeclidinium-vilanterol 62.5-25 mcg/actuation (Anoro Ellipta) 1 inh inhalation DAILY Do you need a note to return to daycare/school/sports/work: No HPI COPD HPI Details 77 YEARS OLD VERY 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 SINCE THE HOSPITALIZATION AND TREATMENT FOR ACUTE EXACERBATION OF COPD HE HAS BEEN DOING. WELL AND IS STABLE HE HAS STATIONARY O2 CONCENTRATOR AT HOME AND HIS SON HAS BOUGHT HIM A VERY SMALL-SIZED LIGHT WEIGHT PORTABLE CONCENTRATOR. WHICH HE USES WHENEVER HE GOES OUTDOORS. HE SAY IS THAT HE FEELS MUCH COMFORTABLE WITH THIS PORTABLE UNIT. IT IS SUPPOSED TO LOST FOR ABOUT 1 TO 1-1/2 HOUR. HE DOES NOT STAY OUTDOORS MORE THAN THAT TIME AND AT HOME HE USES THE REGULAR CONCENTRATOR. [facility] Medical History Pulmonary nodules Heart attack Surgical History H/O right knee surgery H/O angioplasty Family History Father Lung cancer Mother Hypertension Social History Household Members: Spouse Housing: House Do you presently have visiting nurse or other home services: No Alcohol intake: former Patient Tobacco Use Status: Former Tobacco user Quit Date: 1997 e-Cigarette/Vaping Use: Never Used Current occupational status: retired Cognitive needs: No Hearing needs: No Vision needs: Yes Review of Systems Const All systems reviewed & are unremarkable except as noted in HPI and below Eyes Reports no additional complaints ENT Reports no additional complaints Card Denies chest pain, Denies irregular heart rhythm and Denies leg edema Resp Reports as per HPI GI Reports no additional complaints Reports no additional complaints Musc Reports myalgias ( mild off and on) Skin/Breast Reports system reviewed and no additional complaints, except as documented Neuro Reports no additional complaints Psych Reports no additional complaints Endo Reports no additional complaints Carlos/Lymph Reports no additional complaints Physical Exam Vital Signs: Last Vital Signs Pulse 74 09/21/23 15:04 BP 124/52 L 09/21/23 15:04 Pulse Ox 90 L 09/21/23 15:04 Oxygen Delivery Method Room Air 09/21/23 15:04 BMI result Body Mass Index 24.5 Const General: comfortable, no acute distress, alert and awake Orientation/consciousness: patient oriented x3 HEENT Head: Yes normal to inspection General nose exam: No nasal polyps present and No nasal discharge present Face and sinus: Yes sinuses nontender Mouth: oropharynx normal Throat: Yes posterior oropharynx normal Eyes General: appearance normal, both eyes and all related structures Neck Neck: Yes normal visual inspection, Yes no lymphadenopathy, Yes trachea midline and Yes no JVD Thyroid: Thyroid normal Chest Chest palpation & inspection: normal inspection of the chest, normal palpation of entire chest wall and no tenderness Resp Other: Percussion note hyper-resonant, Breath sounds are diminished with prolonged expiratory phase. No wheezes or crepitations are heard. Cardio Palpation: normal PMI Rate: regular rate Rhythm: regular rhythm Heart sounds: no gallops and no murmurs GI Palpation (GI): Soft to palpation, nontender, No hepatosplenomegaly present and no masses Auscultation: normal bowel sounds Back/Spine/Pelvis Thoracic/Lumbar Spine: thoracic and lumbar spine normal to inspection Skin General skin exam: no rashes or lesions noted Neuro General: patient oriented x3 and no focal motor deficits Cranial nerves: Yes CN's II-XII intact bilaterally Extrem General: Yes normal to inspection, Yes no clubbing, cyanosis or edema and Yes no calf tenderness Psych Appearance: grossly normal and well kempt Speech and movement: Normal speech and movement present Results Reviewed Results Reviewed: HOSPITAL RECORDS FOR HIS RECENT HOSPITALIZATION REVIEWED Assessment & Plan Assessment & Plan (1) COPD (chronic obstructive pulmonary disease): Comment: As per PFT .Patient has severe chronic obstructive pulmonary disorder, no response to bronchodilator therapy. [place] : THEOPHYLLINE ER 300 MG P.O. DAILY IN THE EVENING ANORO ELLIPTA 1 INHALATION DAILY ALBUTEROL SOLUTION IN THE NEBULIZER Q 4-6 HOURS P.R.N. FOR ACUTE DISTRESS. ALSO ALBUTEROL HFA ( VENTOLIN ) 2 PUFFS Q 4-6 HOURS P.R.N. WHEN OUTDOORS Code(s): J44.9 - Chronic obstructive pulmonary disease, unspecified Plan: ABOVE (2) SOB (shortness of breath): Comment: His complaint of shortness of breath on exertion is consistent with chronic obstructive pulmonary disease, which seems to be moderately severe. Code(s): R06.02 - Shortness of breath Plan: EXPLAINED (3) Hypoxia: Comment: HAD 6 MINUTES WALK TEST ON HIS LAST VISIT WHICH QUALIFIED HIM FOR OXYGEN. HE IS USING O2 2 L/MINUTE AT NIGHT, AND P.R.N. DURING THE DAYTIME FOR PORTABILITY , HIS SON HAS BEEN ABLE TO GET A [employer] SMALL PORTABLE CONCENTRATOR , ONLINE WHICH PROVIDES O2 AT 32.5 % HE IS COMFORTABLE USING THIS THE AT 2 L/MINUTE. Code(s): R09.02 - Hypoxemia Plan: ABOVE (4) Pulmonary nodules: Comment: Two perifissural small pulmonary nodules noted on CTA OF THE CHEST IN DECEMBER OF THIS YEAR. SEEM TO BE SMALL AND NONSPECIFIC. I THINK IT WILL BE A GOOD IDEA TO REPEAT CT SCAN OF THE CHEST AT LEAST 1 MORE TIME AT A YEARS INTERVAL, THAT WILL BE SOMETIME AROUND IN spring. Code(s): R91.8 - Other nonspecific abnormal finding of lung field Plan: ABOVE Coding Level of Care Code Est Pt Level 3 (30426) Diagnoses COPD (chronic obstructive pulmonary disease) J44.9 SOB (shortness of breath) R06.02 Hypoxia R09.02 Pulmonary nodules R91.8
== END 2023-09-21 16:00 | disposition home or self-care (01) ==
PROVIDERS: PCP Internal Medicine; Visit Provider Internal Medicine
DX: J44.9 Chronic obstructive pulmonary disease, unspecified (principal); R06.02 Shortness of breath; R09.02 Hypoxemia; R91.8 Other nonspecific abnormal finding of lung field
CPT/HCPCS: 99213

== ENCOUNTER → 2023-09-21 14:40 | Outpatient (BNVA) | payer MEDICARE, SELFPAY | PROVIDERS: PCP Internal Medicine; Visit Provider Internal Medicine | DX: J44.9 Chronic obstructive pulmonary disease, unspecified (principal); R91.8 Other nonspecific abnormal finding of lung field; R06.02 Shortness of breath; R09.02 Hypoxemia | CPT/HCPCS: 99212 ==

== ENCOUNTER 2023-10-07 13:41 | Outpatient (AMB) | payer MEDICARE, SELFPAY ==
[2023-10-07 14:04] VITALS: BP 108/60; PULSE 65; O2SAT 100; BMI 23.9
--- NOTE | 2023-10-07 14:04 | A.OFFPC_ITS ---
Vital Signs 10/07/23 14:04 Height 5 ft 8 in Weight 157 lb BMI 23.9 BP 108/60 Blood Pressure Location Lt brachial Position Sitting Pulse 65 Pulse Source Pulse Oximeter Pulse Oximetry (%) 100 Oxygen Delivery Method Room Air Intake Visit Reasons: Annual PE Intake Note: Pt is here today for PE. Pt states that he was in the hospital last month. Allergies roflumilast [From Daliresp] Adverse Reaction (Intermediate, Verified 10/07/23 14:18) Shortness of Breath fluticasone furoate [From Trelegy Ellipta] Adverse Reaction (Verified 10/07/23 14:18) Difficulty Breathing vilanterol [From Trelegy Ellipta] Adverse Reaction (Verified 10/07/23 14:18) Difficulty Breathing zetia Adverse Reaction (Uncoded 10/07/23 14:18) Blurred vision Tobacco use date assessed: 10/07/23 Fall risk assessment: No Falls in past year Last assessed Fall Risk: 10/07/23 HPI Annual PE HPI Details Pt presents for PE. COPD is stable on Anoro and Theophylline, supplemental O2 and f/u with pulmonology. PFSH Medical History Pulmonary nodules Heart attack Surgical History H/O right knee surgery H/O angioplasty Family History Father Lung cancer Mother Hypertension Social History Household Members: Spouse Housing: House Do you presently have visiting nurse or other home services: No Alcohol intake: former Patient Tobacco Use Status: Former Tobacco user Quit Date: 1997 e-Cigarette/Vaping Use: Never Used Current occupational status: retired Cognitive needs: No Hearing needs: No Vision needs: Yes Questionnaire Thrive Questionnaire Date Thrive assessed: 12/21/22 GABBY-7 AMB Questionnaire GABBY-7 Date GABBY - 7 assessed: 12/21/22 Source: Developed by Drs. Johnathan Corral, Geneva Freire, Johnnie Palacio and colleagues, with an educational rebel from [employer]. Review of Systems Const All systems reviewed & are unremarkable except as noted in HPI and below Reports no additional complaints Eyes Reports no additional complaints ENT Reports no additional complaints Card Reports no additional complaints Resp Reports no additional complaints GI Reports no additional complaints Reports no additional complaints Physical exam (Primary Care) Vital Signs: Last Vital Signs Pulse 65 10/07/23 14:04 BP 108/60 10/07/23 14:04 Pulse Ox 100 10/07/23 14:04 Oxygen Delivery Method Room Air 10/07/23 14:04 BMI result Body Mass Index 23.9 Tobacco/Smoking Status: Tobacco use Status Tobacco use date assessed 10/07/23 10/07/23 14:22 Patient Tobacco Use Status Former Tobacco user 10/07/23 14:04 e-Cigarette/Vaping Use Never Used 10/07/23 14:04 Thrive Assessment: Date of Thrive Assessment Date Thrive assessed 12/21/22 10/07/23 14:04 Const General: no acute distress HENMT Head: Yes normal to inspection Ears: hearing grossly normal bilaterally Face and sinus: Yes normal facial exam Mouth: Normal oral and palatal mucosa present Throat: Yes posterior oropharynx normal Neck Neck: Yes no lymphadenopathy and Yes supple Resp Effort & Inspection: normal respiratory effort Auscultation: clear to auscultation bilaterally Cardio Rhythm: regular rhythm Heart sounds: S1 normal heart sound present and S2 normal heart sound present GI Inspection: Yes normal to inspection Palpation (GI): Soft to palpation Percussion: Yes normal to percussion Auscultation: normal bowel sounds Assessment and Plan Assessment & Plan (1) Hyperlipidemia: Code(s): E78.5 - Hyperlipidemia, unspecified Plan: cont statin (2) COPD (chronic obstructive pulmonary disease): Comment: As per PFT .Patient has severe chronic obstructive pulmonary disorder, no response to bronchodilator therapy. TX : THEOPHYLLINE ER 300 MG P.O. DAILY IN THE EVENING ANORO ELLIPTA 1 INHALATION DAILY ALBUTEROL SOLUTION IN THE NEBULIZER Q 4-6 HOURS P.R.N. FOR ACUTE DISTRESS. ALSO ALBUTEROL HFA ( VENTOLIN ) 2 PUFFS Q 4-6 HOURS P.R.N. WHEN OUTDOORS Code(s): J44.9 - Chronic obstructive pulmonary disease, unspecified Plan: cont current meds (3) CAD (coronary artery disease): Comment: hx of MD, s/p bare metal stent to OM 1998 , ECHO 01/13 EF 53%, basal inferior , basal inferolateral akinetic Code(s): I25.10 - Atherosclerotic heart disease of [place] coronary artery without angina pectoris Plan: cont current meds (4) Annual physical exam: Code(s): Z00.00 - Encounter for general adult medical examination without abnormal findings Plan: well balanced diet, regular physical activity discussed, return for fasting labs, f/u 6 months Coding Level of Care Code Est Pt Prev Care >65y(20378) Diagnoses Hyperlipidemia E78.5 COPD (chronic obstructive pulmonary disease) J44.9 CAD (coronary artery disease) I25.10 Annual physical exam Z00.00
== END 2023-10-07 15:09 | disposition home or self-care (01) ==
PROVIDERS: PCP Internal Medicine; Visit Provider Internal Medicine
DX: E78.5 Hyperlipidemia, unspecified (principal); J44.9 Chronic obstructive pulmonary disease, unspecified; I25.10 Atherosclerotic heart disease of native coronary artery without angina pectoris; Z00.00 Encounter for general adult medical examination without abnormal findings
CPT/HCPCS: 99397

== ENCOUNTER 2024-01-17 13:40 | Outpatient (AMB) | payer MEDICARE, SELFPAY ==
[2024-01-17 13:58] VITALS: BP 110/52; PULSE 64; O2SAT 91; BMI 25.0
--- NOTE | 2024-01-17 13:58 | A.OFFVIS_ITS ---
Intake Vital Signs 01/17/24 13:58 Height 5 ft 8 in Weight 164 lb 3.91 oz BMI 25.0 BP 110/52 L Blood Pressure Location Lt brachial Position Sitting Pulse 64 Pulse Source Pulse Oximeter Pulse Oximetry (%) 91 L Oxygen Delivery Method Room Air Intake Visit Reasons: COPD Intake Note: pt is here for follow up and states his breathing is getting worse, but he rests and uses oxygen and this helps Allergies roflumilast [From Daliresp] Adverse Reaction (Intermediate, Verified 01/17/24 14:31) Shortness of Breath fluticasone furoate [From Trelegy Ellipta] Adverse Reaction (Verified 01/17/24 14:31) Difficulty Breathing vilanterol [From Trelegy Ellipta] Adverse Reaction (Verified 01/17/24 14:31) Difficulty Breathing zetia Adverse Reaction (Uncoded 01/17/24 14:31) Blurred vision Medication List - Last Reconciled 01/17/24 by Lisy Love MD [Ipratropium [place]/Fenoterol 1 inh inhalation BID-TID] albuterol sulfate 90 mcg/actuation 2 puffs inhalation QID PRN albuterol sulfate 0.63 mg (3 mL) inhalation Q4-6H PRN amlodipine 10 mg PO DAILY aspirin 81 mg PO DAILY atorvastatin 80 mg PO DAILY dorzolamide-timolol 22.3-6.8 mg/mL 1 drp ophthalmic-Right BID formoterol fumarate 12 mcg inhalation BID guaifenesin ER (Mucinex) 600 mg PO BID latanoprost 0.005% 1 drp ophthalmic-Right BEDTIME metoprolol tartrate 50 mg PO BID nebulizers 1 q6 prn theophylline ER 300 mg PO DAILY timolol maleate 0.5% 1 drp ophthalmic-Right BID umeclidinium-vilanterol 62.5-25 mcg/actuation (Anoro Ellipta) 1 inh inhalation DAILY Do you need a note to return to daycare/school/sports/work: No HPI COPD HPI Details This gentleman is 78 years old very pleasant Singaporean speaking, comes accompanied by his . He is a case of chronic obstructive pulmonary disease and respiratory failure. In the past he has been treated mainly with the [place] brands of inhalers and also theophylline. Now he is still using theophylline 300 mg ER once a day and Anoro Ellipta 1 inhalation daily. He uses O2 2 L/minute at home all the times and also for outdoors. He has his own privately bought POC. Which is of his small size and the battery charge does not lost for more than couple hours. He does have portable cylinders at home but does not want to bring them outdoors due to being bulky. When he goes outdoors he does keep once cylinder in the car as a backup. [facility] Medical History Pulmonary nodules Heart attack Surgical History H/O right knee surgery H/O angioplasty Family History Father Lung cancer Mother Hypertension Social History Household Members: Spouse Housing: House Do you presently have visiting nurse or other home services: No Alcohol intake: former Patient Tobacco Use Status: Former Tobacco user Quit Date: 1997 e-Cigarette/Vaping Use: Never Used Current occupational status: retired Cognitive needs: No Hearing needs: No Vision needs: Yes Review of Systems Const All systems reviewed & are unremarkable except as noted in HPI and below Eyes Reports no additional complaints ENT Reports no additional complaints Card Denies chest pain, Denies irregular heart rhythm and Denies leg edema Resp Reports as per HPI GI Reports no additional complaints Reports no additional complaints Musc Reports myalgias ( mild off and on) Skin/Breast Reports system reviewed and no additional complaints, except as documented Neuro Reports no additional complaints Psych Reports no additional complaints Endo Reports no additional complaints Carlos/Lymph Reports no additional complaints Physical Exam Vital Signs: Last Vital Signs Pulse 64 01/17/24 13:58 BP 110/52 L 01/17/24 13:58 Pulse Ox 91 L 01/17/24 13:58 Oxygen Delivery Method Room Air 01/17/24 13:58 BMI result Body Mass Index 25.0 Const General: comfortable, no acute distress, alert and awake Orientation/consciousness: patient oriented x3 HEENT Head: Yes normal to inspection General nose exam: No nasal polyps present and No nasal discharge present Face and sinus: Yes sinuses nontender Mouth: oropharynx normal Throat: Yes posterior oropharynx normal Eyes General: appearance normal, both eyes and all related structures Neck Neck: Yes normal visual inspection, Yes no lymphadenopathy, Yes trachea midline and Yes no JVD Thyroid: Thyroid normal Chest Chest palpation & inspection: normal inspection of the chest, normal palpation of entire chest wall and no tenderness Resp Other: Percussion note hyper-resonant, Breath sounds are diminished with prolonged expiratory phase. No wheezes or crepitations are heard. Cardio Palpation: normal PMI Rate: regular rate Rhythm: regular rhythm Heart sounds: no gallops and no murmurs GI Palpation (GI): Soft to palpation, nontender, No hepatosplenomegaly present and no masses Auscultation: normal bowel sounds Back/Spine/Pelvis Thoracic/Lumbar Spine: thoracic and lumbar spine normal to inspection Skin General skin exam: no rashes or lesions noted Neuro General: patient oriented x3 and no focal motor deficits Cranial nerves: Yes CN's II-XII intact bilaterally Extrem General: Yes normal to inspection, Yes no clubbing, cyanosis or edema and Yes no calf tenderness Psych Appearance: grossly normal and well kempt Speech and movement: Normal speech and movement present Assessment & Plan Assessment & Plan (1) COPD (chronic obstructive pulmonary disease): Comment: As per PFT .Patient has severe chronic obstructive pulmonary disorder, no response to bronchodilator therapy. [place] : ALSO ALBUTEROL HFA ( VENTOLIN ) 2 PUFFS Q 4-6 HOURS P.R.N. WHEN OUTDOORS Code(s): J44.9 - Chronic obstructive pulmonary disease, unspecified Plan: TX : THEOPHYLLINE ER 300 MG P.O. DAILY IN THE EVENING ANORO ELLIPTA 1 INHALATION DAILY ALBUTEROL SOLUTION IN THE NEBULIZER Q 4-6 HOURS P.R.N. FOR ACUTE DISTRESS. (2) SOB (shortness of breath): Comment: His complaint of shortness of breath on exertion is consistent with chronic obstructive pulmonary disease, which seems to be moderately severe. Code(s): R06.02 - Shortness of breath Plan: Explained to him through his why. Advised to continue his present inhalers. Also advised to use the portable O2 C, at 2 L/minute whenever he goes outdoors In addition, to the poor POC he should also keep the portable cylinder ready for backup when he has to go outdoors for a few hours. (3) Hypoxia: Comment: NOTED ABOVE HE WAS FOUND TO HAVE HYPOXEMIA ON MINIMAL WALKING. HE DOES HAVE O2 CONCENTRATOR AT HOME ALONG WITH PORTABLE CYLINDERS. Code(s): R09.02 - Hypoxemia Plan: USE O2 2 L/MINUTE DURING SLEEP. P.R.N. DURING THE DAYTIME, AND DEFINITELY WITH PORTABLE UNIT WHEN GOING OUTDOORS. (4) Pulmonary nodules: Comment: CTA OF THE CHEST IN DECEMBER OF YEAR 2022 SHOWED 2 SMALL PRE FISSURAL NODULES IN THE RIGHT LUNG. SEEM TO BE SMALL AND NONSPECIFIC. BUT I THINK IT WILL BE A GOOD IDEA TO REPEAT CT SCAN OF THE CHEST AT LEAST 1 MORE TIME AT A YEARS INTERVAL, * Code(s): R91.8 - Other nonspecific abnormal finding of lung field Plan: I THINK HE SHOULD HAVE A REPEAT CT SCAN AT LEAST 1 MORE TIME. THIS WILL BE DISCUSSED WITH HIM ON THE NEXT SCHEDULED VISIT. Coding Level of Care Code Est Pt Level 3 (05804) Diagnoses COPD (chronic obstructive pulmonary disease) J44.9 SOB (shortness of breath) R06.02 Hypoxia R09.02 Pulmonary nodules R91.8
== END 2024-01-17 14:32 | disposition home or self-care (01) ==
PROVIDERS: PCP Internal Medicine; Visit Provider Internal Medicine
DX: J44.9 Chronic obstructive pulmonary disease, unspecified (principal); R06.02 Shortness of breath; R09.02 Hypoxemia; R91.8 Other nonspecific abnormal finding of lung field
CPT/HCPCS: 99213

== ENCOUNTER → 2024-01-17 13:40 | Outpatient (BNVA) | payer MEDICARE, SELFPAY | PROVIDERS: PCP Internal Medicine; Visit Provider Internal Medicine | DX: J44.9 Chronic obstructive pulmonary disease, unspecified (principal); R09.02 Hypoxemia; R91.8 Other nonspecific abnormal finding of lung field; Z99.81 Dependence on supplemental oxygen | CPT/HCPCS: 99212 ==

== ENCOUNTER 2024-04-16 08:08 | Outpatient (REF) | payer MEDICARE, MEDICAID, SELFPAY ==
[2024-04-16 12:05] LABS: MANUAL DIFF FLAG NO
[2024-04-16 12:09] LABS: Basophils Percent Auto 0.6 % (0-2); Eosinophils Percent Auto 0.7 % (0-4); Hematocrit 42.4 % (42.0-52.0); Hemoglobin 14.2 g/dl (14.0-18.0); Imm Gran Abs Auto 0.02 X10*3/uL (0.00-0.03); Imm Gran Pct Auto 0.4 % (0.0-0.4); Lymphocytes Absolute Auto 2.1 X10*3/uL (1.2-4.9); Lymphocytes Percent Auto 39.3 % (20-40); Mean Corpuscular HGB Conc 33.5 g/dl (31.0-36.0); Mean Corpuscular Hemoglobin 30.9 pg (27.0-33.0); Mean Corpuscular Volume 92.4 fL (80.0-98.0); Mean Platelet Volume 9.9 fL (9.4-12.4); Monocytes Absolute Auto 0.6 X10*3/uL (0.1-1.2); Monocytes Percent Auto 10.3 % (2-11); Neutrophils Absolute Auto 2.6 x10*3/uL (2.0-8.3); Neutrophils Percent Auto 48.7 % (45-73); Platelet Count 204 X10*3/uL (160-400); Red Blood Count 4.59 X10*6/uL (4.60-5.80); Red Cell Distribution Width 12.6 % (11.0-16.0); White Blood Count 5.4 X10*3/uL (4.8-10.8)
[2024-04-16 12:55] LABS: Alanine Aminotransferase 41 U/L (0-40); Albumin Level 3.9 g/dL (3.5-5.0); Alkaline Phosphatase 94 U/L (39-117); Anion Gap 15 (12-20); Aspartate Amino Transferase 37 U/L (5-37); Bilirubin Total 0.9 mg/dL (0.0-1.0); Blood Urea Nitrogen 16 mg/dL (9-16); Calcium 9.1 mg/dL (8.4-10.2); Carbon Dioxide 29 mmol/L (22-29); Chloride 106 mmol/L (96-108); Cholesterol 168 mg/dL (<200); Estimated Glomerular Filt Rate > 60; Glucose Fasting 96 mg/dL (60-99); HDL Cholesterol 53 mg/dL (>40); Potassium 4.1 mmol/L (3.3-5.1); Sodium 146 mmol/L (135-145); Total Protein 7.1 g/dL (6.5-8.0)
[2024-04-16 13:14] LABS: LDL Cholesterol Calculated 85 mg/dL (<100); Triglycerides 153 mg/dL (<150)
== END 2024-04-16 08:09 | disposition home or self-care (01) ==
LOC: HO.HMGCLDS 08:08
PROVIDERS: PCP Internal Medicine; Visit Provider Internal Medicine
DX: I25.10 Atherosclerotic heart disease of native coronary artery without angina pectoris (principal); E78.5 Hyperlipidemia, unspecified
CPT/HCPCS: 36415; 80053; 80061; 85025

== ENCOUNTER 2024-04-17 11:18 | Outpatient (AMB) | payer MEDICARE, MEDICAID, SELFPAY ==
[2024-04-17 11:24] VITALS: BP 114/66; PULSE 66; O2SAT 95; BMI 24.3
--- NOTE | 2024-04-17 11:24 | MHC.PC.OV ---
Vital Signs 04/17/24 11:24 Height 5 ft 8 in Weight 160 lb BMI 24.3 BP 114/66 Blood Pressure Location Lt brachial Position Sitting Pulse 66 Pulse Source Pulse Oximeter Pulse Oximetry (%) 95 Oxygen Delivery Method Room Air Intake Visit Reasons: 6 months follow up visit Intake Note: Pt is here today for 6 months follow up visit on labs. Allergies roflumilast [From Daliresp] Adverse Reaction (Intermediate, Verified 04/17/24 11:26) Shortness of Breath fluticasone furoate [From Trelegy Ellipta] Adverse Reaction (Verified 04/17/24 11:26) Difficulty Breathing vilanterol [From Trelegy Ellipta] Adverse Reaction (Verified 04/17/24 11:26) Difficulty Breathing zetia Adverse Reaction (Uncoded 04/17/24 11:26) Blurred vision Medication List - Last Reconciled 04/17/24 by Araceli Padilla MD [Ipratropium [place]/Fenoterol 1 inh inhalation BID-TID] albuterol sulfate 90 mcg/actuation 2 puffs inhalation QID PRN albuterol sulfate 0.63 mg (3 mL) inhalation Q4-6H PRN amlodipine 10 mg PO DAILY aspirin 81 mg PO DAILY atorvastatin 80 mg PO DAILY dorzolamide-timolol 22.3-6.8 mg/mL 1 drp ophthalmic-Right BID formoterol fumarate 12 mcg inhalation BID latanoprost 0.005% 1 drp ophthalmic-Right BEDTIME metoprolol tartrate 50 mg PO BID nebulizers 1 q6 prn theophylline ER 300 mg PO DAILY timolol maleate 0.5% 1 drp ophthalmic-Right BID umeclidinium-vilanterol 62.5-25 mcg/actuation (Anoro Ellipta) 1 inh inhalation DAILY Tobacco use date assessed: 04/17/24 Fall risk assessment: No Falls in past year Last assessed Fall Risk: 04/17/24 Dental Screening Dental Screen Date: 04/17/24 Did you have a dental visit in the last 12 months?: No Did you have a dental problem in the last 6 months where you did not have access to dental care?: No Was dental information given to patient?: Patient declined HPI 6 months follow up visit HPI Details Patient presents for the follow-up on hypertension hyperlipidemia coronary artery disease COPD/restrictive lung disease with chronic respiratory failure on supplemental O2. [facility] Medical History (Updated 04/17/24 @ 12:03 by Araceli Padilla MD) CAD (coronary artery disease) Pulmonary nodules Heart attack Surgical History H/O right knee surgery H/O angioplasty Family History Father Lung cancer Mother Hypertension Social History Household Members: Spouse Housing: House Do you presently have visiting nurse or other home services: No Alcohol intake: former Patient Tobacco Use Status: Former Tobacco user e-Cigarette/Vaping Use: Never Used service: No Current occupational status: retired Cognitive needs: No Hearing needs: No Vision needs: Yes Questionnaire Thrive Questionnaire Date Thrive assessed: 12/21/22 AUDIT C Alcohol Use Questionnaire (AUDIT-C) 1. How often do you have a drink containing alcohol?: Never 3. How often do you have six or more drinks on one occasion?: Never Total Score: 0 GABBY-7 AMB Questionnaire GABBY-7 Date GABBY - 7 assessed: 12/21/22 Source: Developed by Drs. Johnathan Corral, Geneva Freire, Johnnie Palacio and colleagues, with an educational rebel from [employer]. Review of Systems Const All systems reviewed & are unremarkable except as noted in HPI and below ENT Reports no additional complaints Card Reports no additional complaints Resp Reports no additional complaints Reports no additional complaints Physical exam (Primary Care) Vital Signs: Last Vital Signs Pulse 66 04/17/24 11:24 BP 114/66 04/17/24 11:24 Pulse Ox 95 04/17/24 11:24 Oxygen Delivery Method Room Air 04/17/24 11:24 BMI result Body Mass Index 24.3 Tobacco/Smoking Status: Tobacco use Status Tobacco use date assessed 04/17/24 04/17/24 11:29 Patient Tobacco Use Status Former Tobacco user 04/17/24 11:25 e-Cigarette/Vaping Use Never Used 04/17/24 11:25 Thrive Assessment: Date of Thrive Assessment Date Thrive assessed 12/21/22 04/17/24 11:25 Const General: no acute distress HENMT Head: Yes normal to inspection Face and sinus: Yes normal facial exam Eyes General: appearance normal, both eyes and all related structures Resp Effort & Inspection: normal respiratory effort Auscultation: crackles and diminished lung sounds Cardio Rhythm: regular rhythm Heart sounds: S1 normal heart sound present and S2 normal heart sound present GI Inspection: Yes normal to inspection Palpation (GI): Soft to palpation Percussion: Yes normal to percussion Auscultation: normal bowel sounds Assessment and Plan Assessment & Plan (1) COPD (chronic obstructive pulmonary disease): Comment: As per PFT .Patient has severe chronic obstructive pulmonary disorder, no response to bronchodilator therapy. [place] : ALSO ALBUTEROL HFA ( VENTOLIN ) 2 PUFFS Q 4-6 HOURS P.R.N. WHEN OUTDOORS Code(s): J44.9 - Chronic obstructive pulmonary disease, unspecified Plan: CONTINUE ANORO, supplemental O2 and theophylline, follow-up with pulmonology (2) Hyperlipidemia: Code(s): E78.5 - Hyperlipidemia, unspecified Plan: Continue statin (3) Pulmonary nodules: Comment: CTA OF THE CHEST IN DECEMBER OF YEAR 2022 SHOWED 2 SMALL PRE FISSURAL NODULES IN THE RIGHT LUNG. SEEM TO BE SMALL AND NONSPECIFIC. BUT I THINK IT WILL BE A GOOD IDEA TO REPEAT CT SCAN OF THE CHEST AT LEAST 1 MORE TIME AT A YEARS INTERVAL, * Code(s): R91.8 - Other nonspecific abnormal finding of lung field (4) CAD (coronary artery disease): Comment: hx of DC, s/p bare metal stent to OM 1998 , ECHO 01/13 EF 53%, basal inferior , basal inferolateral akinetic Code(s): I25.10 - Atherosclerotic heart disease of [place] coronary artery without angina pectoris Plan: Continue beta eve and statin (5) Hypoxia: Comment: NOTED ABOVE HE WAS FOUND TO HAVE HYPOXEMIA ON MINIMAL WALKING. HE DOES HAVE O2 CONCENTRATOR AT HOME ALONG WITH PORTABLE CYLINDERS. Code(s): R09.02 - Hypoxemia Plan: Continue supplemental O2 (6) HTN (hypertension): Code(s): I10 - Essential (primary) hypertension Plan: Continue amlodipine Orders: Orders Comprehensive [place]. Panel Fast 6 Months E78.5 - Hyperlipidemia, unspecified, J44.9 - Chronic obstructive pulmonary disease, unspecified, R91.8 - Other nonspecific abnormal finding of lung field Theophylline 6 Months E78.5 - Hyperlipidemia, unspecified, J44.9 - Chronic obstructive pulmonary disease, unspecified, R91.8 - Other nonspecific abnormal finding of lung field Complete Blood Count Auto Diff 6 Months E78.5 - Hyperlipidemia, unspecified, J44.9 - Chronic obstructive pulmonary disease, unspecified, R91.8 - Other nonspecific abnormal finding of lung field Lipid Panel 6 Months E78.5 - Hyperlipidemia, unspecified, J44.9 - Chronic obstructive pulmonary disease, unspecified, R91.8 - Other nonspecific abnormal finding of lung field Hemoglobin A1c 6 Months E78.5 - Hyperlipidemia, unspecified, J44.9 - Chronic obstructive pulmonary disease, unspecified, R91.8 - Other nonspecific abnormal finding of lung field Medications: New amlodipine 10 mg PO DAILY 90 tabs 3RF theophylline ER 300 mg PO DAILY 90 caps 3RF Changed From umeclidinium-vilanterol 62.5-25 mcg/actuation (Anoro Ellipta) 1 inh inhalation DAILY To Anoro Ellipta 62.5-25 mcg/actuation (umeclidinium-vilanterol) 1 inh inhalation DAILY 60 ea 5RF NS Refilled atorvastatin 80 mg PO DAILY 90 tabs 3RF metoprolol tartrate 50 mg PO BID 180 tabs 3RF Coding Level of Care Code Est Pt Level 4 (61337) Diagnoses COPD (chronic obstructive pulmonary disease) J44.9 Hyperlipidemia E78.5 Pulmonary nodules R91.8 CAD (coronary artery disease) I25.10 Hypoxia R09.02 HTN (hypertension) I10
== END 2024-04-17 12:04 | disposition home or self-care (01) ==
LOC: HO.HMGC 11:18
PROVIDERS: PCP Internal Medicine; Visit Provider Internal Medicine
DX: J44.9 Chronic obstructive pulmonary disease, unspecified (principal); E78.5 Hyperlipidemia, unspecified; R91.8 Other nonspecific abnormal finding of lung field; I25.10 Atherosclerotic heart disease of native coronary artery without angina pectoris; R09.02 Hypoxemia; I10 Essential (primary) hypertension
CPT/HCPCS: 99214

== ENCOUNTER 2024-05-15 13:26 | Outpatient (AMB) | payer MEDICARE, MEDICAID, SELFPAY ==
--- NOTE | 2024-05-15 13:30 | MHC.OFFVIS ---
Vital Signs 05/15/24 13:39 Height 5 ft 8 in Weight 159 lb 13.362 oz BMI 24.3 BP 102/70 Blood Pressure Location Lt brachial Position Sitting Pulse 66 Pulse Source Pulse Oximeter Pulse Oximetry (%) 94 Oxygen Delivery Method Nasal Cannula Intake Visit Reasons: COPD Aerosol Line Operator Required: No Allergies roflumilast [From Daliresp] Adverse Reaction (Intermediate, Verified 05/15/24 14:00) Shortness of Breath fluticasone furoate [From Trelegy Ellipta] Adverse Reaction (Verified 05/15/24 14:00) Difficulty Breathing vilanterol [From Trelegy Ellipta] Adverse Reaction (Verified 05/15/24 14:00) Difficulty Breathing zetia Adverse Reaction (Uncoded 05/15/24 14:00) Blurred vision Medication List - Last Reconciled 05/15/24 by Lisy Love MD [Ipratropium [place]/Fenoterol 1 inh inhalation BID-TID] albuterol sulfate 90 mcg/actuation 2 puffs inhalation QID PRN albuterol sulfate 0.63 mg (3 mL) inhalation Q4-6H PRN amlodipine 10 mg PO DAILY Anoro Ellipta 62.5-25 mcg/actuation (umeclidinium-vilanterol) 1 inh inhalation DAILY NS aspirin 81 mg PO DAILY atorvastatin 80 mg PO DAILY dorzolamide-timolol 22.3-6.8 mg/mL 1 drp ophthalmic-Right BID latanoprost 0.005% 1 drp ophthalmic-Right BEDTIME metoprolol tartrate 50 mg PO BID nebulizers 1 q6 prn theophylline ER 300 mg PO DAILY timolol maleate 0.5% 1 drp ophthalmic-Right BID HPI HPI COPD: Details: 78 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 AND HAS PULMONARY NODULE. HE IS HERE FOR FOLLOW-UP AFTER 4 MONTHS. HE USES O2 2 L/MINUTE 24 HOURS A DAY. HE HAS HIS OWN LIGHTWEIGHT POC WHICH HE USES FOR PORTABILITY DURING THE DAYTIME. AT HOME AND AT NIGHT HE IS USING HIS STATIONARY CONCENTRATOR. CLAIMS THAT HIS BREATHING HAS REMAINED VERY STABLE WITHOUT ANY ACUTE EXACERBATIONS. HE CONTINUES TO USE HIS INHALER ANORO ELLIPTA AND ALSO THEOPHYLLINE ER 300 MG DAILY. [facility] Medical History CAD (coronary artery disease) Pulmonary nodules Heart attack Surgical History H/O right knee surgery H/O angioplasty Family History Father Lung cancer Mother Hypertension Social History Household Members: Spouse Housing: House Do you presently have visiting nurse or other home services: No Alcohol intake: former Patient Tobacco Use Status: Former Tobacco user e-Cigarette/Vaping Use: Never Used service: No Current occupational status: retired Cognitive needs: No Hearing needs: No Vision needs: Yes Review of Systems Const All systems reviewed & are unremarkable except as noted in HPI and below Eyes Reports no additional complaints ENT Reports no additional complaints Card Denies chest pain, Denies irregular heart rhythm and Denies leg edema Resp Reports as per HPI GI Reports no additional complaints Reports no additional complaints Musc Reports myalgias ( mild off and on) Skin/Breast Reports system reviewed and no additional complaints, except as documented Neuro Reports no additional complaints Psych Reports no additional complaints Endo Reports no additional complaints Carlos/Lymph Reports no additional complaints Physical Exam Const General: comfortable, no acute distress, alert and awake Orientation/consciousness: patient oriented x3 HEENT Head: Yes normal to inspection General nose exam: No nasal polyps present and No nasal discharge present Face and sinus: Yes sinuses nontender Mouth: oropharynx normal Throat: Yes posterior oropharynx normal Eyes General: appearance normal, both eyes and all related structures Neck Neck: Yes normal visual inspection, Yes no lymphadenopathy, Yes trachea midline and Yes no JVD Thyroid: Thyroid normal Chest Chest palpation & inspection: normal inspection of the chest, normal palpation of entire chest wall and no tenderness Resp Other: Percussion note hyper-resonant, Breath sounds are diminished with prolonged expiratory phase. No wheezes or crepitations are heard. Cardio Palpation: normal PMI Rate: regular rate Rhythm: regular rhythm Heart sounds: no gallops and no murmurs GI Palpation (GI): Soft to palpation, nontender, No hepatosplenomegaly present and no masses Auscultation: normal bowel sounds Back/Spine/Pelvis Thoracic/Lumbar Spine: thoracic and lumbar spine normal to inspection Skin General skin exam: no rashes or lesions noted Neuro General: patient oriented x3 and no focal motor deficits Cranial nerves: Yes CN's II-XII intact bilaterally Extrem General: Yes normal to inspection, Yes no clubbing, cyanosis or edema and Yes no calf tenderness Psych Appearance: grossly normal and well kempt Speech and movement: Normal speech and movement present Assessment & Plan Assessment & Plan (1) COPD (chronic obstructive pulmonary disease): Comment: As per PFT .Patient has severe chronic obstructive pulmonary disorder, no response to bronchodilator therapy. HE IS STAYING WELL AND STABLE WITH THE CURRENT REGIMEN. LUCKILY HE HAS HAD NO ACUTE EXACERBATION. Code(s): J44.9 - Chronic obstructive pulmonary disease, unspecified Category: Medical Plan: CONTINUE ANORO ELLIPTA 1 INHALATION DAILY. CONTINUE THEOPHYLLINE ER 300 MG DAILY. ALBUTEROL SOLUTIONS 0.63 MG IN THE NEBULIZER Q 6 HOURS P.R.N. WHEN IN THE HOUSE. ALBUTEROL HFA 2 PUFFS Q 6 HOURS P.R.N. WHEN OUTDOORS (2) Pulmonary nodules: Comment: CTA OF THE CHEST IN DECEMBER OF YEAR 2022 SHOWED 2 SMALL PRE FISSURAL NODULES IN THE RIGHT LUNG. SEEM TO BE SMALL AND NONSPECIFIC. BUT I WAS PLANNING TO ORDER THE CT SCAN AT LEAST 1 MORE TIME. .HE HAS AGREED TO HAVE THE CT SCAN . Code(s): R91.8 - Other nonspecific abnormal finding of lung field Category: Medical Plan: CT SCAN OF THE CHEST WITHOUT CONTRAST IS ORDERED. (3) Hypoxia: Comment: THIS GENTLEMAN HAS NOCTURNAL HYPOXEMIA WELL EXERCISE. INDUCED HYPOXEMIA HE DOES HAVE A OXYGEN CONCENTRATOR AT HOME AND ALSO HAS SMALL SIZE POC THAT HE HAD PURCHASED HIMSELF. Code(s): R09.02 - Hypoxemia Category: Medical Plan: ADVISED TO USE O2 2 L/MINUTE WHOLE NIGHT, P.R.N. DURING THE DAYTIME, AND USE THE POC WHEN GOING OUTDOORS. Orders: Orders CT chest wo IV con Today J44.9 - Chronic obstructive pulmonary disease, unspecified, R91.8 - Other nonspecific abnormal finding of lung field Coding Level of Care Code Est Pt Level 3 (56469) Diagnoses COPD (chronic obstructive pulmonary disease) J44.9 Pulmonary nodules R91.8 Hypoxia R09.02
[2024-05-15 13:39] VITALS: BP 102/70; PULSE 66; O2SAT 94; BMI 24.3
== END 2024-05-15 13:53 | disposition home or self-care (01) ==
PROVIDERS: PCP Internal Medicine; Visit Provider Internal Medicine
DX: J44.9 Chronic obstructive pulmonary disease, unspecified (principal); R91.8 Other nonspecific abnormal finding of lung field; R09.02 Hypoxemia
CPT/HCPCS: 99213

== ENCOUNTER → 2024-05-15 13:26 | Outpatient (BNVA) | payer MEDICARE, SELFPAY | PROVIDERS: PCP Internal Medicine; Visit Provider Internal Medicine | DX: J44.9 Chronic obstructive pulmonary disease, unspecified (principal); R91.8 Other nonspecific abnormal finding of lung field; R09.02 Hypoxemia; Z79.899 Other long term (current) drug therapy | CPT/HCPCS: 99212 ==

== ENCOUNTER 2024-06-22 13:04 | Outpatient (REF) | payer MEDICARE, MEDICAID, SELFPAY ==
--- NOTE | ~2024-06-22 | CT_ITS ---
EXAMINATION: CT CHEST WITHOUT CONTRAST CLINICAL INFORMATION: Prior abnormal imaging. COMPARISON: January 21, 2023 and December 31, 2021 TECHNIQUE: Multidetector volumetric CT imaging of the chest was done. Axial MIP volume rendering provided. Sagittal and coronal reformatted images were obtained. This CT examination was performed using dose optimization techniques as appropriate, variously including the following: *Automated exposure control *Adjustment of mA and/or kV according to patient size (this includes techniques or standardized protocols for targeted exams where dose is matched to indication/reason for exam; i.e. extremities or head) *Use of iterative reconstruction technique DLP: 128 mGy-cm FINDINGS: LUNGS: Severe upper lobe predominant bullous emphysema. 5 mm partially calcified perifissural nodule right lower lobe on image 97 of series 9. 5 mm nodule right lower lobe on image 92 of series 9. 7 mm subpleural nodule right middle lobe on image 159 series 9. These nodules appear stable. No new or enlarging pulmonary nodules. Central bronchial wall thickening. Central airways are patent. MEDIASTINUM: No axillary, hilar or mediastinal adenopathy. Great vessels are of normal caliber. Heart size is normal. No pericardial effusion. CORONARY ARTERY CALCIFICATION: Marked. PLEURA: No pleural effusion. UPPER ABDOMEN: Unremarkable. OSSEOUS STRUCTURES: No destructive bone lesions. CT/CT chest wo IV con IMPRESSION: Stable bilateral pulmonary nodules dating back to December 31, 2021. Follow-up as clinically indicated. Fleischner guidelines were followed. Electronically signed by: Erickson Johansen MD 06/22/2024 04:30 PM EDT
== END 2024-06-22 13:05 | disposition home or self-care (01) ==
LOC: HO.CT 13:04
PROVIDERS: PCP Internal Medicine; Visit Provider Internal Medicine
DX: R91.8 Other nonspecific abnormal finding of lung field (principal); J44.9 Chronic obstructive pulmonary disease, unspecified
CPT/HCPCS: 71250

== ENCOUNTER 2024-10-19 08:51 | Outpatient (REF) | payer MEDICARE, MEDICAID, SELFPAY ==
[2024-10-19 10:04] LABS: MANUAL DIFF FLAG NO
[2024-10-19 10:13] LABS: Basophils Percent Auto 0.5 % (0-2); Eosinophils Percent Auto 0.3 % (0-4); Hematocrit 40.9 % (42.0-52.0); Hemoglobin 14.2 g/dl (14.0-18.0); Lymphocytes Absolute Auto 1.5 X10*3/uL (1.2-4.9); Lymphocytes Percent Auto 36.3 % (20-40); Mean Corpuscular HGB Conc 34.7 g/dl (31.0-36.0); Mean Corpuscular Hemoglobin 31.2 pg (27.0-33.0); Mean Corpuscular Volume 89.9 fL (80.0-98.0); Mean Platelet Volume 9.9 fL (9.4-12.4); Monocytes Absolute Auto 0.6 X10*3/uL (0.1-1.2); Monocytes Percent Auto 14.3 % (2-11); Neutrophils Absolute Auto 1.9 x10*3/uL (2.0-8.3); Neutrophils Percent Auto 48.6 % (45-73); Platelet Count 185 X10*3/uL (160-400); Red Blood Count 4.55 X10*6/uL (4.60-5.80); Red Cell Distribution Width 12.2 % (11.0-16.0)
[2024-10-19 10:46] LABS: Alanine Aminotransferase 53 U/L (0-40); Alkaline Phosphatase 109 U/L (39-117); Anion Gap 10 (12-20); Aspartate Amino Transferase 45 U/L (5-37); Bilirubin Total 1.6 mg/dL (0.0-1.0); Blood Urea Nitrogen 15 mg/dL (9-16); Calcium 8.9 mg/dL (8.4-10.2); Carbon Dioxide 28 mmol/L (22-29); Chloride 107 mmol/L (96-108); Cholesterol 143 mg/dL (<200); Estimated Glomerular Filt Rate > 60; Glucose Fasting 113 mg/dL (60-99); HDL Cholesterol 36 mg/dL (>40); LDL Cholesterol Calculated 74 mg/dL (<100); Potassium 3.9 mmol/L (3.3-5.1); Sodium 141 mmol/L (135-145); Triglycerides 169 mg/dL (<150)
[2024-10-19 11:49] LABS: Estimated Average Glucose 114 mg/dL; Hemoglobin A1C 139.4856 umol/L; Hemoglobin A1c % 5.6 % (<6.0); Total Hemoglobin (HGBA1C) 3649.2261 umol/L
[2024-10-22 15:30] LABS: Theophylline 10.8
== END 2024-10-19 08:52 | disposition home or self-care (01) ==
LOC: HO.HMGCLDS 08:51
PROVIDERS: PCP Internal Medicine; Visit Provider Internal Medicine
DX: R91.8 Other nonspecific abnormal finding of lung field (principal); E78.5 Hyperlipidemia, unspecified; J44.9 Chronic obstructive pulmonary disease, unspecified; Z13.1 Encounter for screening for diabetes mellitus
CPT/HCPCS: 36415; 80053; 80061; 80198; 83036; 85025

== ENCOUNTER 2024-10-25 09:47 | Outpatient (AMB) | payer MEDICARE, MEDICAID, SELFPAY ==
[2024-10-25 09:53] VITALS: BP 120/64; PULSE 96; O2SAT 92; BMI 24.6
--- NOTE | 2024-10-25 09:53 | A.OFFPC_ITS ---
Vital Signs 10/25/24 09:53 Height 5 ft 8 in Weight 162 lb BMI 24.6 BP 120/64 Blood Pressure Location Lt brachial Position Sitting Pulse 96 Pulse Source Pulse Oximeter Pulse Oximetry (%) 92 Oxygen Delivery Method Room Air Intake Visit Reasons: Annual PE Intake Note: Pt is here today for PE. Allergies roflumilast [From Daliresp] Adverse Reaction (Intermediate, Verified 10/25/24 09:54) Shortness of Breath fluticasone furoate [From Trelegy Ellipta] Adverse Reaction (Verified 10/25/24 09:54) Difficulty Breathing vilanterol [From Trelegy Ellipta] Adverse Reaction (Verified 10/25/24 09:54) Difficulty Breathing zetia Adverse Reaction (Uncoded 10/25/24 09:54) Blurred vision Medication List - Last Reconciled 10/25/24 by Araceli Padilla MD [Ipratropium [place]/Fenoterol 1 inh inhalation BID-TID] albuterol sulfate 90 mcg/actuation 2 puffs inhalation QID PRN albuterol sulfate 0.63 mg (3 mL) inhalation Q4-6H PRN amlodipine 10 mg PO DAILY Anoro Ellipta 62.5-25 mcg/actuation (umeclidinium-vilanterol) 1 inh inhalation DAILY NS aspirin 81 mg PO DAILY atorvastatin 80 mg PO DAILY dorzolamide-timolol 22.3-6.8 mg/mL 1 drp ophthalmic-Right BID latanoprost 0.005% 1 drp ophthalmic-Right BEDTIME metoprolol tartrate 50 mg PO BID nebulizers 1 q6 prn theophylline ER 300 mg PO DAILY timolol maleate 0.5% 1 drp ophthalmic-Right BID Tobacco use date assessed: 10/25/24 Fall risk assessment: No Falls in past year Last assessed Fall Risk: 10/25/24 Dental Screening Dental Screen Date: 10/25/24 Did you have a dental visit in the last 12 months?: No Did you have a dental problem in the last 6 months where you did not have access to dental care?: No Was dental information given to patient?: Patient declined HPI Annual PE HPI Details PATIENT PRESENTS FOR PHYSICAL. O2 dependent COPD is controlled on Anoro, theophylline and supplemental O2 [facility] Medical History (Updated 10/25/24 @ 10:55 by Araceli Padilla MD) CAD (coronary artery disease) Pulmonary nodules Heart attack Surgical History H/O right knee surgery H/O angioplasty Family History Father Lung cancer Mother Hypertension Social History Household Members: Spouse Housing: House Do you presently have visiting nurse or other home services: No Alcohol intake: former Patient Tobacco Use Status: Former Tobacco user e-Cigarette/Vaping Use: Never Used service: No Current occupational status: retired Cognitive needs: No Hearing needs: No Vision needs: Yes Questionnaire PHQ-9 Over the last 2 weeks, how often have you been bothered by any of the following problems? 1. Little interest or pleasure in doing things: not at all 2. Feeling down, depressed, or hopeless: not at all 3. Trouble falling or staying asleep, or sleeping too much: not at all 4. Feeling tired or having little energy: not at all 5. Poor appetite or overeating: not at all 6. Feeling bad about yourself - or that you are a failure or have let yourself or your family down: not at all 7. Trouble concentrating on things, such as reading the newspaper or watching television: not at all 8. Moving or speaking so slowly that other people could have noticed. Or the opposite - being so fidgety or restless that you have been moving around a lot more than usual: not at all 9. Thoughts that you would be better off or of hurting yourself in some way: not at all Total score: 0 Depression Screening Interpretation: Negative Depression Screening Done: Yes 58883 - PHQ-9 Billing: Yes Source: Developed by Drs. Johnathan Corral, Geneva Freire, Johnnie Palacio and colleagues, with an educational rebel from [employer]. Thrive Questionnaire Date Thrive assessed: 10/25/24 I am a: Patient What is your living situation today?: I have a steady place to live Within the past 12 months, did the food you bought not last and you didn't have the money to get more?: Never true Within the past 12 months, did you worry whether your food would run out before you got money to buy more?: Never true Do you have trouble paying for medicines?: No Do you have trouble getting transportation to medical appointments?: No Do you have trouble paying your heating and electricity bill?: No Do you have trouble taking care of your child, family member or friend?: No Do you have trouble with day-to-day activities such as bathing, preparing meals, shopping, managing finances, etc.?: No Are you currently unemployed and looking for a job?: No Are you interested in more education?: No Please select the resources that you would like help with: None Currently or been in a relationship where the following occur: No concerns reported THRIVE Score: 0 AUDIT C Alcohol Use Questionnaire (AUDIT-C) 1. How often do you have a drink containing alcohol?: Never 3. How often do you have six or more drinks on one occasion?: Never Total Score: 0 GABBY-7 AMB Questionnaire GABBY-7 Date GABBY - 7 assessed: 10/25/24 Feeling nervous, anxious, or on edge: 0 = Not at all Not being able to stop or control worryin = Not at all Worrying too much about different things: 0 = Not at all Trouble relaxin = Not at all Being so restless that it is hard to sit still: 0 = Not at all Becoming easily annoyed or irritable: 0 = Not at all Feeling afraid as if something awful might happen: 0 = Not at all Total GABBY-7 score (0-4 normal; 5-9 mild; 10-14 moderate; 15-21 severe): 0 Source: Developed by Drs. Johnathan Corral, Geneva Freire, Johnnie Palacio and colleagues, with an educational rebel from [employer]. GABBY-7 Assessment Billing GABBY-7 Assessment Tool: GABBY-7 Assessment 98135 Review of Systems Const All systems reviewed & are unremarkable except as noted in HPI and below Eyes Reports no additional complaints ENT Reports no additional complaints Card Reports no additional complaints Resp Reports no additional complaints GI Reports no additional complaints Reports no additional complaints Physical exam (Primary Care) Vital Signs: Last Vital Signs Pulse 96 10/25/24 09:53 BP 120/64 10/25/24 09:53 Pulse Ox 92 10/25/24 09:53 Oxygen Delivery Method Room Air 10/25/24 09:53 BMI result Body Mass Index 24.6 Tobacco/Smoking Status: Tobacco use Status Tobacco use date assessed 10/25/24 10/25/24 09:59 Patient Tobacco Use Status Former Tobacco user 10/25/24 09:59 e-Cigarette/Vaping Use Never Used 10/25/24 09:59 PHQ-9: PHQ-9 Score PHQ-9: Total score 0 10/25/24 09:59 Depression Screening Interpretation: Negative Thrive Assessment: Date of Thrive Assessment Date Thrive assessed 10/25/24 10/25/24 09:59 Currently or been in a relationship where the following occur: No concerns reported Const General: no acute distress HENMT Head: Yes normal to inspection Ears: hearing grossly normal bilaterally Mouth: Normal oral and palatal mucosa present Eyes General: appearance normal, both eyes and all related structures Neck Neck: Yes no lymphadenopathy and Yes supple Resp Effort & Inspection: able to speak in complete sentences and paradoxical thoraco-abdominal movements Auscultation: crackles (bases) and diminished lung sounds Cardio Rhythm: regular rhythm Heart sounds: S1 normal heart sound present and S2 normal heart sound present GI Inspection: Yes normal to inspection Palpation (GI): Soft to palpation Percussion: Yes normal to percussion Auscultation: normal bowel sounds Extrem General: Yes no clubbing, cyanosis or edema Coding Level of Care Code Est Pt Prev Care >65y(04847) Diagnoses HTN (hypertension) I10 Annual physical exam Z00.00 Hyperlipidemia E78.5 COPD (chronic obstructive pulmonary disease) J44.9 Pulmonary nodules R91.8 Additional Codes GABBY-7 Assessment Billing - GABBY-7 Assessment Tool: GABBY-7 Assessment 10397 ([id number]) PHQ-9 - 77044 - PHQ-9 Billing: Yes ([id number]) Assessment & Plan Assessment & Plan (1) HTN (hypertension): Code(s): I10 - Essential (primary) hypertension Category: Medical Plan: Continue current medications (2) Annual physical exam: Code(s): Z00.00 - Encounter for general adult medical examination without abnormal findings Category: Medical Plan: Well-balanced diet regular physical activity discussed with the patient (3) Hyperlipidemia: Code(s): E78.5 - Hyperlipidemia, unspecified Category: Medical Plan: Continue statin (4) COPD (chronic obstructive pulmonary disease): Comment: PFT severe chronic obstructive pulmonary disorder, no response to bronchodilator therapy, chest CT 06/12/2024 severe upper lobe bullous emphysema stable right lower lobe and right middle lobe nodules from 12/15 Code(s): J44.9 - Chronic obstructive pulmonary disease, unspecified Category: Medical Plan: Continue current treatment follow-up with pulmonology (5) Pulmonary nodules: Comment: CTA OF THE CHEST IN DECEMBER OF YEAR 2022 SHOWED 2 SMALL PRE FISSURAL NODULES IN THE RIGHT LUNG. repeat CT scan 05/2024 2 5 mm RLL and 7 mm RML stable nodules, severe upper lobes bullous emphysema Code(s): R91.8 - Other nonspecific abnormal finding of lung field Category: Medical Plan: Stable lung nodules Orders: Orders Comprehensive [place]. Panel Fast 6 Months E78.5 - Hyperlipidemia, unspecified, I10 - Essential (primary) hypertension, J44.9 - Chronic obstructive pulmonary disease, unspecified, R06.02 - Shortness of breath, Z00.00 - Encounter for general adult medical examination without abnormal findings Hemoglobin A1c 6 Months E78.5 - Hyperlipidemia, unspecified, I10 - Essential (primary) hypertension, J44.9 - Chronic obstructive pulmonary disease, unspecified, R06.02 - Shortness of breath, Z00.00 - Encounter for general adult medical examination without abnormal findings IRON PROFILE 6 Months E78.5 - Hyperlipidemia, unspecified, I10 - Essential (primary) hypertension, J44.9 - Chronic obstructive pulmonary disease, unspecified, R06.02 - Shortness of breath, Z00.00 - Encounter for general adult medical examination without abnormal findings Complete Blood Count Auto Diff 6 Months E78.5 - Hyperlipidemia, unspecified, I10 - Essential (primary) hypertension, J44.9 - Chronic obstructive pulmonary disease, unspecified, R06.02 - Shortness of breath, Z00.00 - Encounter for general adult medical examination without abnormal findings Vitamin B12 and Folate 6 Months E78.5 - Hyperlipidemia, unspecified, I10 - Essential (primary) hypertension, J44.9 - Chronic obstructive pulmonary disease, unspecified, R06.02 - Shortness of breath, Z00.00 - Encounter for general adult medical examination without abnormal findings Medications: Refilled amlodipine 10 mg PO DAILY 90 tabs 3RF Anoro Ellipta 62.5-25 mcg/actuation (umeclidinium-vilanterol) 1 inh inhalation DAILY 60 ea 5RF NS atorvastatin 80 mg PO DAILY 90 tabs 3RF metoprolol tartrate 50 mg PO BID 180 tabs 3RF theophylline ER 300 mg PO DAILY 90 caps 3RF
== END 2024-10-25 10:55 | disposition home or self-care (01) ==
PROVIDERS: PCP Internal Medicine; Visit Provider Internal Medicine
DX: I10 Essential (primary) hypertension (principal); Z00.00 Encounter for general adult medical examination without abnormal findings; E78.5 Hyperlipidemia, unspecified; J44.9 Chronic obstructive pulmonary disease, unspecified; R91.8 Other nonspecific abnormal finding of lung field

== ENCOUNTER 2024-11-06 13:39 | Outpatient (REF) | payer MEDICARE, MEDICAID, SELFPAY ==
[2024-11-06 17:58] LABS: Influenza A PCR NEGATIVE (Negative); Influenza B PCR NEGATIVE (Negative); Resp Syncy Virus RNA Qual PCR NEGATIVE (Negative); SARS COV2 PCR INHOUSE NEGATIVE (Negative)
== END 2024-11-06 13:40 | disposition home or self-care (01) ==
LOC: HO.LAB 13:39
PROVIDERS: Physician Assistant; PCP Internal Medicine
DX: Z13.89 Encounter for screening for other disorder (principal)
CPT/HCPCS: 0241U; 99212

== ENCOUNTER 2024-11-06 13:39 | Outpatient (AMB) | payer MEDICARE, MEDICAID, SELFPAY ==
[2024-11-06 13:54] VITALS: BP 122/64; PULSE 60; TEMP 36.6; O2SAT 92; BMI 24.6
--- NOTE | 2024-11-06 13:54 | MHC.OFFWIV ---
Intake Vital Signs 11/06/24 13:54 Height 5 ft 8 in Weight 162 lb BMI 24.6 BP 122/64 Blood Pressure Location Lt brachial Position Sitting Pulse 60 Pulse Source Pulse Oximeter Temp 97.9 F Temp Source Oral Pulse Oximetry (%) 92 Oxygen Delivery Method Nasal Cannula Intake Visit Reasons: EP cough, sore throat, copd Intake Note: Pt is here today for a walk in visit. Pt c/o cough since Tuesday. Pt states that he can not sleep due to cough. Patient Tobacco Use Status: Former Tobacco user Allergies roflumilast [From Daliresp] Adverse Reaction (Intermediate, Verified 11/06/24 13:57) Shortness of Breath fluticasone furoate [From Trelegy Ellipta] Adverse Reaction (Verified 11/06/24 13:57) Difficulty Breathing vilanterol [From Trelegy Ellipta] Adverse Reaction (Verified 11/06/24 13:57) Difficulty Breathing zetia Adverse Reaction (Uncoded 11/06/24 13:57) Blurred vision HPI HPI Comments History of Present Illness Details History - The patient is a 79-year-old male presenting with difficulty breathing and persistent cough. - He is [place] speaking and his is here interpreting for him, they declined video interpretor. - He has experienced symptoms for the past three days, beginning on Tuesday. - An established diagnosis of Chronic Obstructive Pulmonary Disease (COPD) is confirmed, requiring 2L oxygen therapy primarily at night. - The patient's oxygen saturation has been noted at 92%, with possible reduction upon physical activity. - There is increased wheezing and shortness of breath without fever or ear/sinus pain. - The patient has continued use of regular inhalers and a rescue inhaler once a day. - A nebulizer is available at home, he is using it once a ay. - No testing for COVID-19 has been conducted. Physical Exam General: Cooperative, healthy appearing, comfortable and no acute distress Orientation/consciousness: Patient oriented x3 Limitations: non Romanian speaking ([place] speaking) Head: Normal to inspection Ears: Hearing impaired, TM bilaterally scant fluid, no infection noted Nose: Normal external nose present, Normal nares present and No nasal discharge present Face and sinus: NC in place. Normal facial exam and Yes sinuses nontender Mouth: Normal oral and palatal mucosa present and moist mucous membranes Throat: Yes tonsils normal, Yes uvula midline. Posterior oropharynx erythema, no exudates noted Eyes: Appearance normal, both eyes and all related structures Neck: Normal visual inspection Respiratory: vesicular lung sounds bilaterally with exp wheezing. Normal respiratory effort, able to speak in complete sentences, Actively coughing, wheezing noted, no respiratory distress, not tachypneic, no tripod positioning and no use of accessory muscles Cardiovascular: Regular rate and rhythm. Normal S1 and S2 Skin: No rashes or lesions noted Neuro: Patient oriented x3 Extremities: Normal to inspection and Yes no clubbing, cyanosis or edema PFSH Medical History (Updated 11/06/24 @ 14:32 by Alana Najera PA-C) CAD (coronary artery disease) Pulmonary nodules Heart attack Surgical History H/O right knee surgery H/O angioplasty Family History Father Lung cancer Mother Hypertension Social History Household Members: Spouse Housing: House Do you presently have visiting nurse or other home services: No Alcohol intake: former Patient Tobacco Use Status: Former Tobacco user e-Cigarette/Vaping Use: Never Used service: No Current occupational status: retired Cognitive needs: No Hearing needs: No Vision needs: Yes Review of Systems Const All systems reviewed & are unremarkable except as noted in HPI and below Physical Exam Vital Signs: Last Vital Signs Temp 97.9 F 11/06/24 13:54 Pulse 60 11/06/24 13:54 BP 122/64 11/06/24 13:54 Pulse Ox 92 11/06/24 13:54 Oxygen Delivery Method Nasal Cannula 11/06/24 13:54 BMI result Body Mass Index 24.6 Assessment & Plan Assessment & Plan (1) Lower respiratory infection (e.g., bronchitis, pneumonia, pneumonitis, pulmonitis): Code(s): J22 - Unspecified acute lower respiratory infection Plan: For the recent onset of respiratory difficulties associated with Chronic Obstructive Pulmonary Disease COPD, a course of oral prednisone will be initiated to alleviate inflammation, with dosing instructions clarified to avoid interference with sleep schedules. Azithromycin was prescribed to not only target potential bacterial infection but also leverage its anti-inflammatory effects on the lungs. Tessalon Perles, a cough suppressant, is to be used at night, allowing productive coughing during the day. A chest x-ray will be performed to rule out pneumonia, and further treatment, including additional antibiotics, will be considered depending on the outcomes. Testing for flu, COVID-19, and RSV was conducted, with follow-ups planned for the delivery and assessment of results. Recommended using home nebulizer TID. Patient was informed and verbally consented to the use of an ambient scribe for clinic note documentation during this visit (2) COPD exacerbation: Code(s): J44.1 - Chronic obstructive pulmonary disease with (acute) exacerbation Plan: as above Orders: Orders XR chest 2V Today R05.9 - Cough, unspecified SARS-CoV2/FLU/RSV Today R09.89 - Other specified symptoms and signs involving the circulatory and respiratory systems Medications: New prednisone 40 mg (2 x 20 mg) PO DAILY 10 tabs 0RF benzonatate 200 mg PO TID PRN 14 caps 0RF cough azithromycin For 250 mg dose pack: take 500 mg today (day 1), then 250 mg for 4 days (days 2-5) PO 6 tabs 0RF Coding Level of Care Code Est Pt Level 4 (48182) Diagnoses Lower respiratory infection (e.g., bronchitis, pneumonia, pneumonitis, pulmonitis) J22 COPD exacerbation J44.1
== END 2024-11-06 14:39 | disposition home or self-care (01) ==
PROVIDERS: PCP Internal Medicine; Visit Provider Physician Assistant
DX: J22 Unspecified acute lower respiratory infection (principal); J44.1 Chronic obstructive pulmonary disease with (acute) exacerbation

== ENCOUNTER 2024-11-06 14:30 | Outpatient (REF) | payer MEDICARE, MEDICAID, SELFPAY ==
--- NOTE | ~2024-11-06 | XR_ITS ---
EXAMINATION: XR CHEST CLINICAL INFORMATION: R05.9 - Cough, unspecified COMPARISON: None available. TECHNIQUE: 2 views of the chest were obtained. FINDINGS: The large right upper lobe bulla with compressive atelectasis. Moderate bullous changes are seen in left upper lobe as well. Lungs are hyperinflated from emphysema. No consolidation or mass seen. The heart size and pulmonary vascularity is normal. No gross bony abnormality seen. XR/XR chest 2V IMPRESSION: Moderate bullous changes in bilateral upper lobe larger on the right. There is compressive atelectasis in both upper lobes. Diffuse emphysema without any acute process. Electronically signed by: Abebe Garza MD 11/06/2024 03:11 PM EST
== END 2024-11-06 14:31 | disposition home or self-care (01) ==
LOC: HO.HMGCX 14:30
PROVIDERS: PCP Internal Medicine; Visit Provider Physician Assistant
DX: J44.1 Chronic obstructive pulmonary disease with (acute) exacerbation (principal); J44.0 Chronic obstructive pulmonary disease with (acute) lower respiratory infection; J22 Unspecified acute lower respiratory infection; R05.9 Cough, unspecified; R09.89 Other specified symptoms and signs involving the circulatory and respiratory systems
CPT/HCPCS: 0241U; 71046; 99212

== ENCOUNTER → 2024-11-06 14:33 | Outpatient (BNV) | payer MEDICARE, MEDICAID, SELFPAY | PROVIDERS: PCP Internal Medicine; Visit Provider Radiology Diagnostic Radiology | DX: R05.9 Cough, unspecified (principal) | CPT/HCPCS: 71046 ==

== ENCOUNTER 2025-01-09 10:12 | Outpatient (AMB) | payer MEDICARE, MEDICAID, SELFPAY ==
[2025-01-09 10:30] VITALS: BP 92/60; PULSE 64; O2SAT 92; BMI 25.0
--- NOTE | 2025-01-09 10:30 | A.OFFVIS_ITS ---
Vital Signs 01/09/25 10:30 Height 5 ft 8 in Weight 164 lb 3.91 oz BMI 25.0 BP 92/60 Blood Pressure Location Rt brachial Position Sitting Pulse 64 Pulse Source Pulse Oximeter Pulse Oximetry (%) 92 Oxygen Delivery Method Room Air Intake Visit Reasons: COPD Intake Note: pt is here for follow up and states he gets tired easy, wheezing, and short of breath with cough, he does need a 6 [facility] 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: No Allergies roflumilast [From Daliresp] Adverse Reaction (Intermediate, Verified 01/09/25 11:03) Shortness of Breath fluticasone furoate [From Trelegy Ellipta] Adverse Reaction (Verified 01/09/25 11:03) Difficulty Breathing vilanterol [From Trelegy Ellipta] Adverse Reaction (Verified 01/09/25 11:03) Difficulty Breathing zetia Adverse Reaction (Uncoded 01/09/25 11:03) Blurred vision Medication List - Last Reconciled 01/09/25 by Lisy Love MD [Ipratropium [place]/Fenoterol 1 inh inhalation BID-TID] albuterol sulfate 90 mcg/actuation 2 puffs inhalation QID PRN albuterol sulfate 0.63 mg (3 mL) inhalation Q4-6H PRN amlodipine 10 mg PO DAILY Anoro Ellipta 62.5-25 mcg/actuation (umeclidinium-vilanterol) 1 inh inhalation DAILY NS aspirin 81 mg PO DAILY atorvastatin 80 mg PO DAILY benzonatate 200 mg PO TID PRN dorzolamide-timolol 22.3-6.8 mg/mL 1 drp ophthalmic-Right BID latanoprost 0.005% 1 drp ophthalmic-Right BEDTIME metoprolol tartrate 50 mg PO BID nebulizers 1 q6 prn theophylline ER 300 mg PO DAILY timolol maleate 0.5% 1 drp ophthalmic-Right BID Do you need a note to return to daycare/school/sports/work: No HPI HPI COPD: Details: 79 YEARS OLD [place]AMBI[place] 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 HE IS KNOWN CASE OF CHRONIC OBSTRUCTIVE PULMONARY DISEASE. ALSO HAS EXERCISE INDUCED HYPOXEMIA. HE HAS BEEN USING MOSTLY THE MEDS BROUGHT FROM [facility] BUT HE CAN NOT GET THOSE MEDS NOW WE HAVE HIM ON ANORO ELLIPTA. THEOPHYLLINE TABLET, AND ALSO DUONEB UPDRAFTS. HIS COMPLAINT IS MILD INTERMITTENT COUGH WITHOUT ANY PRODUCTION. AND ALSO SHORTNESS OF BREATH ON WALKING AROUND. HE DOES USE OXYGEN AT NIGHT 2 L/MINUTE. AND DOES HAVE THE PORTABLE CYLINDERS BUT DOES NOT USE ALL THE TIME. HE HAS BUT A SMALL SIZED POC ON HIS OWN, AND USES DURING THE DAYTIME IF HE GOES OUTDOORS. HE HAS BEEN FREE OF ANY ACUTE RESPIRATORY INFECTION IN THE LAST 6 MONTHS. [facility] Medical History CAD (coronary artery disease) Pulmonary nodules Heart attack Surgical History H/O right knee surgery H/O angioplasty Family History Father Lung cancer Mother Hypertension Social History Household Members: Spouse Housing: House Do you presently have visiting nurse or other home services: No Alcohol intake: former Patient Tobacco Use Status: Former Tobacco user e-Cigarette/Vaping Use: Never Used service: No Current occupational status: retired Cognitive needs: No Hearing needs: No Vision needs: Yes Review of Systems Const All systems reviewed & are unremarkable except as noted in HPI and below Eyes Reports no additional complaints ENT Reports no additional complaints Card Denies chest pain, Denies irregular heart rhythm and Denies leg edema Resp Reports as per HPI GI Reports no additional complaints Reports no additional complaints Musc Reports myalgias ( mild off and on) Skin/Breast Reports system reviewed and no additional complaints, except as documented Neuro Reports no additional complaints Psych Reports no additional complaints Endo Reports no additional complaints Carlos/Lymph Reports no additional complaints Physical Exam Vital Signs: Last Vital Signs Pulse 64 01/09/25 10:30 BP 92/60 01/09/25 10:30 Pulse Ox 92 01/09/25 10:30 Oxygen Delivery Method Room Air 01/09/25 10:30 BMI result Body Mass Index 25.0 Const General: comfortable, no acute distress, alert and awake Orientation/consciousness: patient oriented x3 HEENT Head: Yes normal to inspection General nose exam: No nasal polyps present and No nasal discharge present Face and sinus: Yes sinuses nontender Mouth: oropharynx normal Throat: Yes posterior oropharynx normal Eyes General: appearance normal, both eyes and all related structures Neck Neck: Yes normal visual inspection, Yes no lymphadenopathy, Yes trachea midline and Yes no JVD Thyroid: Thyroid normal Chest Chest palpation & inspection: normal inspection of the chest, normal palpation of entire chest wall and no tenderness Resp Other: Percussion note hyper-resonant, Breath sounds are diminished with prolonged expiratory phase. No wheezes or crepitations are heard. Cardio Palpation: normal PMI Rate: regular rate Rhythm: regular rhythm Heart sounds: no gallops and no murmurs GI Palpation (GI): Soft to palpation, nontender, No hepatosplenomegaly present and no masses Auscultation: normal bowel sounds Back/Spine/Pelvis Thoracic/Lumbar Spine: thoracic and lumbar spine normal to inspection Skin General skin exam: no rashes or lesions noted Neuro General: patient oriented x3 and no focal motor deficits Cranial nerves: Yes CN's II-XII intact bilaterally Extrem General: Yes normal to inspection, Yes no clubbing, cyanosis or edema and Yes no calf tenderness Psych Appearance: grossly normal and well kempt Speech and movement: Normal speech and movement present Office Procedures 6 Minute Walk Time:: 10:30 SPO2 % at rest: 96 Pulse at rest: 63 SPO2 % during excercise: 87 Pulse during excercise: 86 SPO2 % after excercise: 96 Pulse after excercise: 83 Distance in yards walked: 300 Supplemental Oxygen: 2 l Performance Observations:: pt. walked for 200 yards on r.a. spo2 dropped to 87%, placed on 2 l oxygen and rested pt for 5 mins, walked for 100yards on 2 l 0xygen, spo2 stable at 95-96% [id number] - 6 Minute Walk Results Reviewed Results Reviewed: 6 MINUTES WALK TEST. O2 SAT AT REST ON ROOM AIR 95%. ON WALKING FOR A FEW MINUTES O2 SAT DROPPED DOWN TO 85%. STARTED ON OXYGEN 2 L/MINUTE AND O2 SAT HAS COME UP TO MID 90S. THE TEST CONFIRMS THAT HE DOES NEED O2 2 L/MINUTE WHEN WALKING AROUND OR DOING ANY PHYSICAL ACTIVITY. Assessment & Plan Assessment & Plan (1) Ex-smoker: Comment: History of smoking, 20 pack years. Quit in 1997. Code(s): Z87.891 - Personal history of nicotine dependence Category: Social Hx Plan: Patient was commended for not smoking anymore (2) COPD (chronic obstructive pulmonary disease): Comment: PFT severe chronic obstructive pulmonary disorder, no response to bronchodilator therapy, Chest CT 06/12/2024 severe upper lobe bullous emphysema stable right lower lobe and right middle lobe nodules from 12/15 Code(s): J44.9 - Chronic obstructive pulmonary disease, unspecified Category: Medical Plan: Continue to use Anoro Ellipta 1 inhalation daily. Ipratropium bromide 1 inhalation b.i.d. or t.i.d. ( has this prep from [facility] ) / albuterol HFA 2 puffs Q 6 hours p.r.n. Also may use albuterol 0.63 mg per 3 mL in the nebulizer Q 6 hours p.r.n.. (3) Hypoxia: Comment: THIS GENTLEMAN HAS NOCTURNAL HYPOXEMIA WELL EXERCISE INDUCED HYPOXEMIA HE DOES HAVE A OXYGEN CONCENTRATOR AT HOME AND ALSO HAS SMALL SIZE POC THAT HE HAD PURCHASED HIMSELF. Code(s): R09.02 - Hypoxemia Category: Medical Plan: Use O2 2 L/minute during the night. Also use O2 2 L/minute with any physical exertion during the daytime (4) Pulmonary nodules: Comment: CTA OF THE CHEST IN DECEMBER OF YEAR 2022 SHOWED 2 SMALL PRE FISSURAL NODULES IN THE RIGHT LUNG. repeat CT scan 05/2024 ,2 (5 mm RLL and 7 mm RML )stable nodules, severe upper lobes bullous emphysema Code(s): R91.8 - Other nonspecific abnormal finding of lung field Category: Medical Plan: No need of any active surveillance but can be checked with CT scan as needed. Coding Level of Care Code Est Pt Level 3 (19658) Diagnoses Ex-smoker Z87.891 COPD (chronic obstructive pulmonary disease) J44.9 Hypoxia R09.02 Pulmonary nodules R91.8 CPT Codes Coding ([id number])
[2025-01-09 11:01] VITALS: PULSE 63; O2SAT 96
== END 2025-01-09 11:00 | disposition home or self-care (01) ==
LOC: HO.HPS 10:13
PROVIDERS: PCP Internal Medicine; Visit Provider Internal Medicine
DX: J44.9 Chronic obstructive pulmonary disease, unspecified (principal); Z87.891 Personal history of nicotine dependence; R89.1 Abnormal level of hormones in specimens from other organs, systems and tissues
CPT/HCPCS: 94618; 99213

== ENCOUNTER → 2025-01-09 10:12 | Outpatient (BNVA) | payer MEDICARE, MEDICAID, SELFPAY | PROVIDERS: PCP Internal Medicine; Visit Provider Internal Medicine | DX: J44.9 Chronic obstructive pulmonary disease, unspecified (principal); R91.8 Other nonspecific abnormal finding of lung field; R09.02 Hypoxemia; Z87.891 Personal history of nicotine dependence | CPT/HCPCS: 94618; 99212 ==

== ENCOUNTER 2025-04-18 09:11 | Outpatient (REF) | payer MEDICARE, OTHER, SELFPAY ==
[2025-04-18 13:15] LABS: MANUAL DIFF FLAG NO
[2025-04-18 13:19] LABS: Basophils Percent Auto 0.4 % (0-2); Eosinophils Percent Auto 0.8 % (0-4); Hematocrit 42.7 % (42.0-52.0); Hemoglobin 14.3 g/dl (14.0-18.0); Imm Gran Abs Auto 0.01 X10*3/uL (0.00-0.03); Imm Gran Pct Auto 0.2 % (0.0-0.4); Lymphocytes Percent Auto 37.6 % (20-40); Mean Corpuscular HGB Conc 33.5 g/dl (31.0-36.0); Mean Corpuscular Hemoglobin 31.2 pg (27.0-33.0); Mean Corpuscular Volume 93.2 fL (80.0-98.0); Monocytes Absolute Auto 0.6 X10*3/uL (0.1-1.2); Monocytes Percent Auto 11.4 % (2-11); Neutrophils Absolute Auto 2.6 x10*3/uL (2.0-8.3); Neutrophils Percent Auto 49.6 % (45-73); Platelet Count 200 X10*3/uL (160-400); Red Blood Count 4.58 X10*6/uL (4.60-5.80); Red Cell Distribution Width 12.6 % (11.0-16.0); White Blood Count 5.2 X10*3/uL (4.8-10.8)
[2025-04-18 13:38] LABS: Estimated Average Glucose 114 mg/dL; Hemoglobin A1c % 5.6 % (<6.0); Total Hemoglobin (HGBA1C) 3702.6558 umol/L
[2025-04-18 13:47] LABS: Alanine Aminotransferase 42 U/L (0-40); Albumin Level 4.2 g/dL (3.5-5.0); Alkaline Phosphatase 95 U/L (39-117); Anion Gap 10 (12-20); Aspartate Amino Transferase 37 U/L (5-37); Bilirubin Total 1.2 mg/dL (0.0-1.0); Blood Urea Nitrogen 14 mg/dL (9-16); Calcium 9.3 mg/dL (8.4-10.2); Carbon Dioxide 30 mmol/L (22-29); Chloride 108 mmol/L (96-108); Estimated Glomerular Filt Rate > 60; Glucose Fasting 99 mg/dL (60-99); Iron 77 mcg/dL (45-160); Percent Iron Saturation 37 % (15-50); Potassium 4.3 mmol/L (3.3-5.1); Sodium 144 mmol/L (135-145); Total Iron Binding Capacity 209 mcg/dL (228-428); Total Protein 7.2 g/dL (6.5-8.0); Unsaturated Iron Binding 132 ug/dL
[2025-04-18 14:08] LABS: Folate > 20.0 ng/mL (> or = 4.0); Vitamin B12 1298 pg/mL (200-900)
[2025-04-19 12:02] LABS: Lyme Abs Screen <0.90 index
== END 2025-04-18 09:12 | disposition home or self-care (01) ==
LOC: HO.HMGCLDS 09:11
PROVIDERS: PCP Internal Medicine; Visit Provider Internal Medicine
DX: I10 Essential (primary) hypertension (principal); Z00.00 Encounter for general adult medical examination without abnormal findings; E78.5 Hyperlipidemia, unspecified; J44.9 Chronic obstructive pulmonary disease, unspecified; R06.02 Shortness of breath; W57.XXXA Bitten or stung by nonvenomous insect and other nonvenomous arthropods, initial encounter
CPT/HCPCS: 36415; 80053; 82607; 82746; 83036; 83540; 85025; 86617; 86618

== ENCOUNTER 2025-04-25 08:52 | Outpatient (AMB) | payer MEDICARE, MEDICAID, SELFPAY ==
--- NOTE | 2025-04-25 08:56 | MHC.PC.OV ---
Vital Signs 04/25/25 08:57 Height 5 ft 8 in Weight 166 lb BMI 25.2 BP 98/60 Blood Pressure Location Lt brachial Position Sitting Respiration 20 Pulse 91 Pulse Source Pulse Oximeter Temp 98.1 F Temp Source Oral Pulse Oximetry (%) 97 Oxygen Delivery Method Room Air Intake Visit Reasons: 6m follow up Intake Note: Pt is here today for a 6 months follow up visit. Allergies roflumilast (From Daliresp) Adverse Reaction (Intermediate, Verified 04/25/25 09:00) Shortness of Breath fluticasone furoate (From Trelegy Ellipta) Adverse Reaction (Verified 04/25/25 09:00) Difficulty Breathing vilanterol (From Trelegy Ellipta) Adverse Reaction (Verified 04/25/25 09:00) Difficulty Breathing zetia Adverse Reaction (Uncoded 04/25/25 09:00) Blurred vision Medication List - Last Reconciled 04/25/25 by Araceli Padilla MD [Ipratropium [place]/Fenoterol 1 inh inhalation BID-TID] albuterol sulfate 90 mcg/actuation 2 puffs inhalation QID PRN albuterol sulfate 0.63 mg (3 mL) inhalation Q4-6H PRN amlodipine 10 mg PO DAILY Anoro Ellipta 62.5-25 mcg/actuation (umeclidinium-vilanterol) 1 inh inhalation DAILY NS aspirin 81 mg PO DAILY atorvastatin 80 mg PO DAILY dorzolamide-timolol 22.3-6.8 mg/mL 1 drp ophthalmic-Right BID latanoprost 0.005% 1 drp ophthalmic-Right BEDTIME metoprolol tartrate 50 mg PO BID nebulizers 1 q6 prn theophylline ER 300 mg PO DAILY timolol maleate 0.5% 1 drp ophthalmic-Right BID Tobacco use date assessed: 04/25/25 Fall risk assessment: No Falls in past year Last assessed Fall Risk: 04/25/25 Dental Screening Dental Screen Date: 04/25/25 Did you have a dental visit in the last 12 months?: No Did you have a dental problem in the last 6 months where you did not have access to dental care?: No Was dental information given to patient?: Patient declined HPI 6m follow up HPI Details Patient presents for the follow-up of O2 dependent COPD hypertension hyperlipidemia, stable on current medications. Patient is established with pulmonology [facility] Medical History (Updated 04/25/25 @ 13:06 by Araceli Padilla MD) Hypoxia HTN (hypertension) CAD (coronary artery disease) Pulmonary nodules Surgical History H/O right knee surgery H/O angioplasty Family History Father Lung cancer Mother Hypertension Social History Household Members: Spouse Housing: House Do you presently have visiting nurse or other home services: No Alcohol intake: former Patient Tobacco Use Status: Former Tobacco user e-Cigarette/Vaping Use: Never Used service: No Current occupational status: retired Cognitive needs: No Hearing needs: No Vision needs: Yes Questionnaire Thrive Questionnaire Date Thrive assessed: 10/25/24 GABBY-7 AMB Questionnaire GABBY-7 Date GABBY - 7 assessed: 10/25/24 Source: Developed by Drs. Johnathan Corral, Geneva Freire, Johnnie Palacio and colleagues, with an educational rebel from [employer]. Review of Systems Const All systems reviewed & are unremarkable except as noted in HPI and below Eyes Reports no additional complaints ENT Reports no additional complaints Card Reports no additional complaints Resp Reports no additional complaints GI Reports no additional complaints Reports no additional complaints Physical exam (Primary Care) Vital Signs: Last Vital Signs Temp 98.1 F 04/25/25 08:57 Pulse 91 04/25/25 08:57 Resp 20 04/25/25 08:57 BP 98/60 04/25/25 08:57 Pulse Ox 97 04/25/25 08:57 Oxygen Delivery Method Room Air 04/25/25 08:57 BMI result Body Mass Index 25.2 Tobacco/Smoking Status: Tobacco use Status Tobacco use date assessed 04/25/25 04/25/25 09:04 Patient Tobacco Use Status Former Tobacco user 04/25/25 08:57 e-Cigarette/Vaping Use Never Used 04/25/25 08:57 Thrive Assessment: Date of Thrive Assessment Date Thrive assessed 10/25/24 04/25/25 08:57 Const General: no acute distress HENMT Head: Yes normal to inspection Face and sinus: Yes normal facial exam Neck Neck: Yes supple Resp Effort & Inspection: able to speak in complete sentences Auscultation: diminished lung sounds Cardio Rhythm: regular rhythm Heart sounds: S1 normal heart sound present and S2 normal heart sound present GI Inspection: Yes normal to inspection Palpation (GI): Soft to palpation Percussion: Yes normal to percussion Auscultation: normal bowel sounds Coding Level of Care Code Est Pt Level 4 (23425) Diagnoses HTN (hypertension) I10 CAD (coronary artery disease) I25.10 Hyperlipidemia E78.5 COPD (chronic obstructive pulmonary disease) J44.9 Assessment & Plan Assessment & Plan (1) HTN (hypertension): Code(s): I10 - Essential (primary) hypertension Category: Medical Plan: Continue current medications (2) CAD (coronary artery disease): Comment: hx of ID, s/p bare metal stent to OM 1998 , ECHO 01/13 EF 53%, basal inferior , basal inferolateral akinetic Code(s): I25.10 - Atherosclerotic heart disease of [place] coronary artery without angina pectoris Category: Medical Plan: Continue beta eve high dose statin and aspirin. Follow-up with the Cardiology (3) Hyperlipidemia: Code(s): E78.5 - Hyperlipidemia, unspecified Category: Medical Plan: Continue statin (4) COPD (chronic obstructive pulmonary disease): Comment: PFT severe chronic obstructive pulmonary disorder, no response to bronchodilator therapy, Chest CT 06/12/2024 severe upper lobe bullous emphysema stable right lower lobe and right middle lobe nodules from 12/15 Code(s): J44.9 - Chronic obstructive pulmonary disease, unspecified Category: Medical Plan: Continue Trelegy and theophylline supplemental O2 follow-up with pulmonology Orders: Orders Comprehensive Anchor. Panel Fast 6 Months E78.5 - Hyperlipidemia, unspecified, I10 - Essential (primary) hypertension, I25.10 - Atherosclerotic heart disease of [place] coronary artery without angina pectoris, J44.9 - Chronic obstructive pulmonary disease, unspecified Complete Blood Count Auto Diff 6 Months E78.5 - Hyperlipidemia, unspecified, I10 - Essential (primary) hypertension, I25.10 - Atherosclerotic heart disease of [place] coronary artery without angina pectoris, J44.9 - Chronic obstructive pulmonary disease, unspecified Lipid Panel 6 Months E78.5 - Hyperlipidemia, unspecified, I10 - Essential (primary) hypertension, I25.10 - Atherosclerotic heart disease of [place] coronary artery without angina pectoris, J44.9 - Chronic obstructive pulmonary disease, unspecified
[2025-04-25 08:57] VITALS: BP 98/60; PULSE 91; RESP 20; TEMP 36.7; O2SAT 97; BMI 25.2
== END 2025-04-25 09:41 | disposition home or self-care (01) ==
LOC: HO.HMCC 08:53
PROVIDERS: PCP Internal Medicine; Visit Provider Internal Medicine
DX: I10 Essential (primary) hypertension (principal); I25.10 Atherosclerotic heart disease of native coronary artery without angina pectoris; E78.5 Hyperlipidemia, unspecified; J44.9 Chronic obstructive pulmonary disease, unspecified

== ENCOUNTER → 2025-04-25 08:52 | Outpatient (BNVA) | payer MEDICARE, MEDICAID, SELFPAY | PROVIDERS: PCP Internal Medicine; Visit Provider Internal Medicine | DX: I10 Essential (primary) hypertension (principal); I25.10 Atherosclerotic heart disease of native coronary artery without angina pectoris; E78.5 Hyperlipidemia, unspecified; J44.9 Chronic obstructive pulmonary disease, unspecified | CPT/HCPCS: 99212 ==

== ENCOUNTER 2025-07-09 13:48 | Outpatient (AMB) | payer MEDICARE, MEDICAID, SELFPAY ==
[2025-07-09 14:14] VITALS: BP 130/52; PULSE 93; O2SAT 94; BMI 25.2
--- NOTE | 2025-07-09 14:14 | A.OFFVIS_ITS ---
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 Required: No Allergies roflumilast (From Daliresp) Adverse Reaction (Intermediate, Verified 07/09/25 14:43) Shortness of Breath fluticasone furoate (From Trelegy Ellipta) Adverse Reaction (Verified 07/09/25 14:43) Difficulty Breathing vilanterol (From Trelegy Ellipta) Adverse Reaction (Verified 07/09/25 14:43) Difficulty Breathing zetia Adverse Reaction (Uncoded 07/09/25 14:43) Blurred vision Medication List - Last Reconciled 07/09/25 by Lisy Love MD [Ipratropium [place]/Fenoterol 1 inh inhalation BID-TID] albuterol sulfate 90 mcg/actuation 2 puffs inhalation QID PRN albuterol sulfate 0.63 mg (3 mL) inhalation Q4-6H PRN amlodipine 10 mg PO DAILY Anoro Ellipta 62.5-25 mcg/actuation (umeclidinium-vilanterol) 1 inh inhalation DAILY NS aspirin 81 mg PO DAILY atorvastatin 80 mg PO DAILY dorzolamide-timolol 22.3-6.8 mg/mL 1 drp ophthalmic-Right BID latanoprost 0.005% 1 drp ophthalmic-Right BEDTIME metoprolol tartrate 50 mg PO BID nebulizers 1 q6 prn theophylline ER 300 mg PO DAILY timolol maleate 0.5% 1 drp ophthalmic-Right BID Do you need a note to return to daycare/school/sports/work: No HPI HPI COPD: Details: 79 years old [place] speaking gentleman very pleasant, comes after 6 months for routine follow-up. During the last 6 months he has been stable, with intermittent bouts of cough and increased shortness of breath. who does most of the talking, say is that is he does have some wheezing once in a while at night. The patient himself is quiet and does not complain much. He does use O2 2.5 L/minute with portable unit. Uses Anoro Ellipta 1 inhalation daily. Still uses theophylline 300 mg p.o. daily PFSH Medical History Hypoxia HTN (hypertension) CAD (coronary artery disease) Pulmonary nodules Surgical History H/O right knee surgery H/O angioplasty Family History Father Lung cancer Mother Hypertension Social History Household Members: Spouse Housing: House Do you presently have visiting nurse or other home services: No Alcohol intake: former Patient Tobacco Use Status: Former Tobacco user e-Cigarette/Vaping Use: Never Used service: No Current occupational status: retired Cognitive needs: No Hearing needs: No Vision needs: Yes Review of Systems Const All systems reviewed & are unremarkable except as noted in HPI and below Eyes Reports no additional complaints ENT Reports no additional complaints Card Denies chest pain, Denies irregular heart rhythm and Denies leg edema Resp Reports as per HPI GI Reports no additional complaints Reports no additional complaints Musc Reports myalgias ( mild off and on) Skin/Breast Reports system reviewed and no additional complaints, except as documented Neuro Reports no additional complaints Psych Reports no additional complaints Endo Reports no additional complaints Carlos/Lymph Reports no additional complaints Physical Exam Vital Signs: Last Vital Signs Pulse 93 07/09/25 14:14 BP 130/52 L 07/09/25 14:14 Pulse Ox 94 07/09/25 14:14 Oxygen Delivery Method Nasal Cannula 07/09/25 14:14 Oxygen Flow Rate 2.5 07/09/25 14:14 BMI result Body Mass Index 25.2 Const General: comfortable, no acute distress, alert and awake Orientation/consciousness: patient oriented x3 HEENT Head: Yes normal to inspection General nose exam: No nasal polyps present and No nasal discharge present Face and sinus: Yes sinuses nontender Mouth: oropharynx normal Throat: Yes posterior oropharynx normal Eyes General: appearance normal, both eyes and all related structures Neck Neck: Yes normal visual inspection, Yes no lymphadenopathy, Yes trachea midline and Yes no JVD Thyroid: Thyroid normal Chest Chest palpation & inspection: normal inspection of the chest, normal palpation of entire chest wall and no tenderness Resp Other: Percussion note hyper-resonant, Breath sounds are diminished with prolonged expiratory phase. No wheezes or crepitations are heard. Cardio Palpation: normal PMI Rate: regular rate Rhythm: regular rhythm Heart sounds: no gallops and no murmurs GI Palpation (GI): Soft to palpation, nontender, No hepatosplenomegaly present and no masses Auscultation: normal bowel sounds Back/Spine/Pelvis Thoracic/Lumbar Spine: thoracic and lumbar spine normal to inspection Skin General skin exam: no rashes or lesions noted Neuro General: patient oriented x3 and no focal motor deficits Cranial nerves: Yes CN's II-XII intact bilaterally Extrem General: Yes normal to inspection, Yes no clubbing, cyanosis or edema and Yes no calf tenderness Psych Appearance: grossly normal and well kempt Speech and movement: Normal speech and movement present Assessment & Plan Assessment & Plan (1) COPD (chronic obstructive pulmonary disease): Comment: PFT severe chronic obstructive pulmonary disorder, no response to bronchodilator therapy, Chest CT 06/12/2024 severe upper lobe bullous emphysema stable right lower lobe and right middle lobe nodules from 12/15 Code(s): J44.9 - Chronic obstructive pulmonary disease, unspecified Category: Medical Plan: Continue Anoro Ellipta 1 inhalation daily. Theophylline 300 mg p.o. daily. Ipratropium/Formetrol 1 inhalation t.i.d. ( a generic prep from [employer]) (2) Hypoxia: Comment: NOCTURNAL HYPOXEMIA AND EXERCISE INDUCED HYPOXEMIA HE DOES HAVE A OXYGEN CONCENTRATOR AT HOME AND ALSO HAS SMALL SIZE POC THAT HE HAD PURCHASED HIMSELF. Code(s): R09.02 - Hypoxemia Category: Medical Plan: OK to use O2 2.5 L/minute at night and also with the portable cylinder during the daytime if he goes outdoors or does any physical activity (3) Pulmonary nodules: Comment: CTA OF THE CHEST IN DECEMBER OF YEAR 2022 SHOWED 2 SMALL PRE FISSURAL NODULES IN THE RIGHT LUNG. repeat CT scan 05/2024 ,2 (5 mm RLL and 7 mm RML )stable nodules, severe upper lobes bullous emphysema Code(s): R91.8 - Other nonspecific abnormal finding of lung field Category: Medical Plan: The pulmonary nodules or small and stable. He quit smoking in mid 90s . No need of doing yearly CT scans Coding Level of Care Code Est Pt Level 3 (43637) Diagnoses COPD (chronic obstructive pulmonary disease) J44.9 Hypoxia R09.02 Pulmonary nodules R91.8
--- OUTSIDE RECORDS SUMMARY | 2025-07-09 17:40 | XMS_ITS ---
Author Name [facility] Organization Unknown Care Team Organization Name Specialty Phone Email Start Date End Da te [facility] BRITTANY FABIOLA Primary Care 08/31/2022 4
== END 2025-07-09 14:45 | disposition home or self-care (01) ==
LOC: HO.HPS 13:49
PROVIDERS: PCP Internal Medicine; Visit Provider Internal Medicine
DX: J44.9 Chronic obstructive pulmonary disease, unspecified (principal); R09.02 Hypoxemia; R91.8 Other nonspecific abnormal finding of lung field
CPT/HCPCS: 99213

== ENCOUNTER → 2025-07-09 13:48 | Outpatient (BNVA) | payer MEDICARE, MEDICAID, SELFPAY | PROVIDERS: PCP Internal Medicine; Visit Provider Internal Medicine | DX: J44.9 Chronic obstructive pulmonary disease, unspecified (principal); R09.02 Hypoxemia; R91.8 Other nonspecific abnormal finding of lung field | CPT/HCPCS: 99212 ==

== ENCOUNTER 2025-10-22 09:39 | Outpatient (REF) | payer MEDICARE, MEDICAID, SELFPAY ==
[2025-10-22 13:48] LABS: MANUAL DIFF FLAG NO
[2025-10-22 13:56] LABS: Hematocrit 44.1 % (42.0-52.0); Hemoglobin 14.6 g/dl (14.0-18.0); Imm Gran Abs Auto 0.01 X10*3/uL (0.00-0.03); Imm Gran Pct Auto 0.2 % (0.0-0.4); Lymphocytes Absolute Auto 2.3 X10*3/uL (1.2-4.9); Mean Corpuscular HGB Conc 33.1 g/dl (31.0-36.0); Mean Corpuscular Hemoglobin 30.8 pg (27.0-33.0); Mean Corpuscular Volume 93.0 fL (80.0-98.0); NRBC Abs Auto 0.000 X10*3/uL (0.0-0.012); NRBC Pct Auto 0.0 /100WBC (0.0-0.2); Platelet Count 208 X10*3/uL (160-400); Red Blood Count 4.74 X10*6/uL (4.60-5.80); White Blood Count 5.4 X10*3/uL (4.8-10.8)
[2025-10-22 14:58] LABS: Alanine Aminotransferase 40 U/L (0-40); Albumin Level 4.1 g/dL (3.5-5.0); Alkaline Phosphatase 96 U/L (39-117); Anion Gap 10 (12-20); Aspartate Amino Transferase 40 U/L (5-37); Blood Urea Nitrogen 15 mg/dL (9-16); Calcium 9.4 mg/dL (8.4-10.2); Carbon Dioxide 29 mmol/L (22-29); Chloride 110 mmol/L (96-108); Cholesterol 199 mg/dL (<200); Estimated Glomerular Filt Rate > 60; HDL Cholesterol 51 mg/dL (>40); Potassium 4.0 mmol/L (3.3-5.1); Sodium 145 mmol/L (135-145); Total Protein 7.0 g/dL (6.5-8.0); Triglycerides 171 mg/dL (<150)
== END 2025-10-22 09:40 ==
LOC: HO.HMGCLDS 09:39
PROVIDERS: PCP Internal Medicine; Visit Provider Internal Medicine
DX: I10 Essential (primary) hypertension (principal); I25.10 Atherosclerotic heart disease of native coronary artery without angina pectoris; E78.5 Hyperlipidemia, unspecified; J44.9 Chronic obstructive pulmonary disease, unspecified
CPT/HCPCS: 36415; 80053; 80061; 85025